=== PATIENT | female | born 1960 | race Caucasian/White ===

== ENCOUNTER 2017-04-26 16:45 | Emergency (ER) | payer MEDICARE, MEDICAID ==
--- NOTE | 2017-04-26 17:27 | EDM.PDOC ---
ED HPI GENERAL MEDICAL PROBLEM - General Chief Complaint: Neuro Symptoms/Deficits Stated Complaint: PT LEGS SWOLLEN Time Seen by Provider: 04/26/17 17:10 Source of Information: Reports: Patient History Limitations: Reports: No Limitations - History of Present Illness INITIAL COMMENTS - FREE TEXT/NARRATIVE: History of present illness: 56-year-old female brought in by care worker secondary to concerns by family practitioner over increasingly worse gait. Patient has had an altered gait since winter and it has gotten progressively worse. Review of systems: As per history of present illness and below otherwise all systems reviewed and negative. Past medical history: As per history of present illness and as reviewed below otherwise noncontributory. Surgical history: As per history of present illness and as reviewed below otherwise noncontributory. Social history: No reported history of drug or alcohol abuse. Family history: As per history of present illness and as reviewed below otherwise noncontributory. Physical exam: HEENT: Atraumatic, normocephalic, pupils reactive, negative for conjunctival pallor or scleral icterus, mucous membranes moist, throat clear, neck supple, nontender, trachea midline. Lungs: Clear to auscultation, breath sounds equal bilaterally, chest nontender. Heart: S1S2, regular, negative for clicks, rubs, or JVD. Abdomen: Soft, nondistended, nontender. Negative for masses or hepatosplenomegaly. Negative for costovertebral tenderness. Pelvis: Stable nontender. Genitourinary: Deferred. Rectal: Deferred. Extremities: Atraumatic, negative for cords or calf pain. Neurovascular unremarkable. Neuro: Patient with altered mental status as baseline and able to participate in a thorough neurological exam. Patient alternates between laughing hysterically and crying care worker indicates this is also patient's norm Diagnostics: [CT of the head] Therapeutics: [] Impression: [Altered gait/neuro changes] Plan: [Follow-up with PCP and neuro] Definitive disposition and diagnosis as appropriate pending reevaluation and review of above. - Related Data Allergies Allergy/AdvReac Type Severity Reaction Status Date / Time No Known Allergies Allergy Verified 04/26/17 17:09 Home Meds: Home Meds Divalproex Sodium [Depakote] 250 mg PO TID 09/06/15 [History] Levothyroxine [Synthroid] 1 tab PO ACBREAKFAST 09/06/15 [History] Polyethylene Glycol 3350 [MiraLAX] 1 dose PO ASDIRECTED PRN 09/06/15 [History] Polyvinyl Alcohol/Povidone [Refresh] 1 drop EYEBOTH ASDIRECTED PRN 09/06/15 [ History] Spironolactone 1 tab PO ACBREAKFAST 09/06/15 [History] fluvoxaMINE [Luvox] 1 tab PO ACBREAKFAST 09/06/15 [History] fluvoxaMINE [Luvox] 50 mg PO ASDIRECTED 09/06/15 [History] risperiDONE [Risperdal] 0.5 mg PO ACBREAKFAST 09/06/15 [History] risperiDONE [Risperdal] 1 tab PO ASDIRECTED 09/06/15 [History] Past Medical History Cardiovascular History: Reports: Hypertension Genitourinary History: Reports: None Neurological History: Reports: Other (See Below) Other Neuro History: scoliosis 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, Schizophrenia Endocrine/Metabolic History: Reports: Other (See Below) Other Endocrine/Metabolic History: melinda's hypothyroidism Dermatologic History: Reports: Other (See Below) Other Dermatologic History: hirsutism - Past Surgical History Cardiovascular Surgical History: Reports: None Female Surgical History: Reports: Other (See Below) Other Female Surgeries/Procedures: Right Oophorectomy Neurological Surgical History: Reports: None Social & Family History - Family History Family Medical History: Noncontributory - Tobacco Use Smoking Status *Q: Current Status Unknown - Recreational Drug Use Recreational Drug Use: No Drug Use in Last 12 Months: No ED ROS GENERAL - Review of Systems Review Of Systems: See Below (See history of present illness) ED EXAM, GENERAL - Physical Exam Exam: See Below (See history of present illness) Course - Vital Signs Last Recorded V/S: Last Vital Signs Temp 36.4 C 04/26/17 17:09 Pulse 93 04/26/17 17:09 Resp 16 04/26/17 17:09 BP 131/67 04/26/17 17:09 Pulse Ox 93 L 04/26/17 17:09 - Orders/Labs/Meds Orders: Active Orders 24 hr Category Date Time Status Head wo Cont [CT] Stat Exams 04/26/17 17:01 Taken Labs: Laboratory Tests 04/26/17 04/26/17 Range/Units 17:19 17:19 WBC 6.47 (4.0-11.0) K/uL RBC 5.06 (4.30-5.90) M/uL Hgb 14.5 (12.0-16.0) g/dL Hct 44.1 (36.0-46.0) % MCV 87.2 (80.0-98.0) fL MCH 28.7 (27.0-32.0) pg MCHC 32.9 (31.0-37.0) g/dL RDW Std Deviation 49.6 (28.0-62.0) fl RDW Coeff of Jimy 16 H (11.0-15.0) % Plt Count 161 (150-400) K/uL MPV 10.90 (7.40-12.00) fL Neut % (Auto) 60.8 (48.0-80.0) % Lymph % (Auto) 24.6 (16.0-40.0) % [place] % (Auto) 11.7 (0.0-15.0) % Eos % (Auto) 2.6 (0.0-7.0) % Baso % (Auto) 0.3 (0.0-1.5) % Neut # (Auto) 3.9 (1.4-5.7) K/uL Lymph # (Auto) 1.6 (0.6-2.4) K/uL [place] # (Auto) 0.8 (0.0-0.8) K/uL Eos # (Auto) 0.2 (0.0-0.7) K/uL Baso # (Auto) 0.0 (0.0-0.1) K/uL Nucleated RBC % 0.0 /100WBC Nucleated RBCs # 0 K/uL Sodium 141 (136-146) mmol/L Potassium 4.8 (3.5-5.1) mmol/L Chloride 106 (98-110) mmol/L Carbon Dioxide 27 (21-31) mmol/L BUN 22 (6.0-23.0) mg/dL Creatinine 0.9 (0.6-1.5) mg/dL Est Cr Clr Drug Dosing 49.54 mL/min Estimated GFR (MDRD) > 60.0 ml/min Glucose 95 (60-110) mg/dL Calcium 9.5 (8.8-10.8) mg/dL Total Bilirubin 0.2 (0.1-1.5) mg/dL AST 14 (5-40) IU/L ALT 10 (8-54) IU/L Alkaline Phosphatase 58 (40-150) Total Protein 7.0 (6.0-8.0) g/dL Albumin 3.8 (3.5-5.0) g/dL Globulin 3.2 (2.0-3.5) g/dL Albumin/Globulin Ratio 1.2 L (1.3-2.8) Departure - Departure Time of Disposition: 18:26 Disposition: Home, Self-Care 01 Condition: Good Clinical Impression: Altered gait - Discharge Information Forms: ED Department Discharge Additional Instructions: The following information is given to patients seen in the emergency department who are being discharged to home. This information is to outline your options for follow-up care. We provide all patients seen in our emergency department with a follow-up referral. The need for follow-up, as well as the timing and circumstances, are variable depending upon the specifics of your emergency department visit. If you don't have a primary care physician on staff, we will provide you with a referral. We always advise you to contact your personal physician following an emergency department visit to inform them of the circumstance of the visit and for follow-up with them and/or the need for any referrals to a consulting specialist. The emergency department will also refer you to a specialist when appropriate. This referral assures that you have the opportunity for follow-up care with a specialist. All of these measure are taken in an effort to provide you with optimal care, which includes your follow-up. Under all circumstances we always encourage you to contact your private physician who remains a resource for coordinating your care. When calling for follow-up care, please make the office aware that this follow-up is from your recent emergency room visit. If for any reason you are refused follow-up, please contact the [facility] Emergency Department at and asked to speak to the emergency department charge nurse. Follow-up with PCP 1-2 days for discussion of results and referral to Neuro accordingly Return to ED as needed as discussed - My Orders Last 24 Hours: My Active Orders 04/26/17 17:01 Head wo Cont [CT] Stat - Assessment/Plan Last 24 Hours: My Active Orders 04/26/17 17:01 Head wo Cont [CT] Stat
[2017-04-26 17:53] LABS: CHLORIDE,CL 106 mmol/L (98-110); SODIUM,NA 141 mmol/L (136-146)
[2017-04-26 18:40] VITALS: BP 109/60
--- NOTE | 2017-04-29 11:09 | CT ---
EXAM DATE: 04/26/17 PATIENT'S AGE: 56 Patient: LIZANDRO CAO Facility: [place], [place] Site . Site : 1960 Study: CT Head [id number] 5:59:25 PM Ordering Physician: Doctor Chapman Final Report: INDICATION: EVALUATE HYDROCEPHALUS CT HEAD WITHOUT CONTRAST TECHNIQUE: Multiple axial CT images were performed through the head without intravenous contrast administration. COMPARISON: No previous studies are currently available for comparison. FINDINGS: No acute intracranial hemorrhage is identified. No extra-axial collections are evident and there is no mass effect or midline shift. There is very mild diffuse age-related brain atrophy. Ventricular size and configuration are within normal limits for the patient`s age. Childers-white differentiation is within normal limits. There is minimal patchy hypodensity in the periventricular white matter, a nonspecific finding which most likely reflects chronic small vessel ischemic change. Osseous structures are within normal limits and no fractures are seen. Included portions of the paranasal sinuses and mastoid air cells are normally aerated. IMPRESSION: 1. No acute intracranial abnormality identified. No hydrocephalus. 2. Mild age-related brain atrophy and white matter hypodensity consistent with chronic small vessel ischemic change. BRIAN MCKENZIE MD [employer] Dictated by: Ollie Mckenzie MD @ 04/26/2017 18:21:38 (Electronic Signature) Report Signed by Proxy. [facility]
== END 2017-04-26 18:40 | disposition home or self-care (01) ==
LOC: MW.ED 16:45
DX: R26.9 Unspecified abnormalities of gait and mobility (principal); I10 Essential (primary) hypertension; Z79.899 Other long term (current) drug therapy
CPT/HCPCS: 36415; 70450; 70450-26; 80053; 85025; 99283; 99284-25

== ENCOUNTER 2018-01-27 14:19 | Emergency (ER) | payer MEDICARE, MEDICAID ==
[2018-01-27 14:47] VITALS: BP 130/97
[2018-01-27] MEDS ORDERED: Lidocaine 1% 20 ML MDV INJECT ONE (15:12)
[2018-01-27] MEDS ORDERED: Diphtheria,Pertussis(Acell),Tetanus Vaccine 0.5 ML Syringe IM ONE (15:12)
--- NOTE | 2018-01-27 15:12 | EDM.PDOC ---
ED HPI GENERAL MEDICAL PROBLEM - General Chief Complaint: Head Injury Stated Complaint: FALL(HEAD INJURY) Time Seen by Provider: 01/27/18 14:35 - History of Present Illness INITIAL COMMENTS - FREE TEXT/NARRATIVE: HISTORY AND PHYSICAL: History of present illness: Patient is 57-year-old white female presents status post fall she sustained a laceration or frontal scalp and her left face there is no loss consciousness no nausea no vomiting no other complaints this was reported be a strictly mechanical fall. Tetanus status is to be determined Review of systems: As per history of present illness and below otherwise all systems reviewed and negative. Past medical history: As per history of present illness and as reviewed below otherwise noncontributory. Surgical history: As per history of present illness and as reviewed below otherwise noncontributory. Social history: No reported history of drug or alcohol abuse. Family history: As per history of present illness and as reviewed below otherwise noncontributory. Physical exam: HEENT: Patient has a moderate depth approximately 4 cm laceration to right frontal scalp she has approximately 1/2 cm moderate depth laceration above her left eye is no step-off no depression is good hemostasis neurovascular exam is unremarkable, normocephalic, pupils reactive, negative for conjunctival pallor or scleral icterus, mucous membranes moist, throat clear, neck supple, nontender , trachea midline. Lungs: Clear to auscultation, breath sounds equal bilaterally, chest nontender. Heart: S1S2, regular, negative for clicks, rubs, or JVD. Abdomen: Soft, nondistended, nontender. Negative for masses or hepatosplenomegaly. Negative for costovertebral tenderness. Pelvis: Stable nontender. Genitourinary: Deferred. Rectal: Deferred. Extremities: Atraumatic, negative for cords or calf pain. Neurovascular unremarkable. 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 - Related Data Allergies Allergy/AdvReac Type Severity Reaction Status Date / Time No Known Allergies Allergy Verified 04/26/17 17:09 Home Meds: Home Meds Divalproex Sodium [Depakote] 250 mg PO TID 09/06/15 [History] Polyethylene Glycol 3350 [MiraLAX] 1 dose PO ASDIRECTED PRN 09/06/15 [History] Polyvinyl Alcohol/Povidone [Refresh] 1 drop EYEBOTH ASDIRECTED PRN 09/06/15 [ History] Spironolactone 1 tab PO ACBREAKFAST 09/06/15 [History] fluvoxaMINE [Luvox] 1 tab PO ACBREAKFAST 09/06/15 [History] fluvoxaMINE [Luvox] 100 mg PO ASDIRECTED 09/06/15 [History] risperiDONE [Risperdal] 1 tab PO TID 09/06/15 [History] Levothyroxine [Synthroid] 88 mcg PO DAILY 01/27/18 [History] Past Medical History Cardiovascular History: Reports: Hypertension Genitourinary History: Reports: None Neurological History: Reports: Other (See Below) Other Neuro History: scoliosis 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, Schizophrenia Endocrine/Metabolic History: Reports: Other (See Below) Other Endocrine/Metabolic History: melinda's hypothyroidism Dermatologic History: Reports: Other (See Below) Other Dermatologic History: hirsutism - Past Surgical History Cardiovascular Surgical History: Reports: None Female Surgical History: Reports: Other (See Below) Other Female Surgeries/Procedures: Right Oophorectomy '2010 Neurological Surgical History: Reports: None Social & Family History - Family History Family Medical History: Noncontributory - Tobacco Use Smoking Status *Q: Current Status Unknown - Recreational Drug Use Recreational Drug Use: No Drug Use in Last 12 Months: No ED ROS GENERAL - Review of Systems Review Of Systems: ROS reveals no pertinent complaints other than HPI. ED EXAM, HEAD INJURY - Physical Exam Exam: See Below (The dictation) Course - Vital Signs Last Recorded V/S: Last Vital Signs Temp 36.7 C 01/27/18 14:39 Pulse 79 01/27/18 14:39 Resp 18 01/27/18 14:39 BP 130/97 H 01/27/18 14:39 Pulse Ox 96 01/27/18 14:39 Departure - Departure Time of Disposition: 15:11 Disposition: Home, Self-Care 01 Condition: Good Clinical Impression: Head injury, Scalp laceration, Facial laceration - Discharge Information Referrals: Tresa Barnes DO [Primary Care Provider] - Additional Instructions: The following information is given to patients seen in the emergency department who are being discharged to home. This information is to outline your options for follow-up care. We provide all patients seen in our emergency department with a follow-up referral. The need for follow-up, as well as the timing and circumstances, are variable depending upon the specifics of your emergency department visit. If you don't have a primary care physician on staff, we will provide you with a referral. We always advise you to contact your personal physician following an emergency department visit to inform them of the circumstance of the visit and for follow-up with them and/or the need for any referrals to a consulting specialist. The emergency department will also refer you to a specialist when appropriate. This referral assures that you have the opportunity for followup care with a specialist. All of these measure are taken in an effort to provide you with optimal care, which includes your followup. Under all circumstances we always encourage you to contact your private physician who remains a resource for coordinating your care. When calling for followup care, please make the office aware that this follow-up is from your recent emergency room visit. If for any reason you are refused follow-up, please contact the [facility] emergency department at and asked to speak to the emergency department charge nurse. Follow-up primary medical doctor call to schedule appointment staple removal 10- 14 days return as needed as discussed[]
[2018-01-27] MEDS ORDERED: Lidocaine 1% 20 ML MDV ONE (15:13)
[2018-01-27] MEDS ORDERED: Bacitracin Oint 1 GM U/D Packet ONE (15:37)
[2018-01-27] MEDS ORDERED: Bacitracin Oint 1 GM U/D Packet TOP ONE (15:37)
== END 2018-01-27 15:59 | disposition home or self-care (01) ==
LOC: MW.ED 14:19
DX: S01.01XA Laceration without foreign body of scalp, initial encounter (principal); S01.81XA Laceration without foreign body of other part of head, initial encounter; S09.90XA Unspecified injury of head, initial encounter; E03.8 Other specified hypothyroidism; I10 Essential (primary) hypertension; Z79.899 Other long term (current) drug therapy; Z23 Encounter for immunization; W19.XXXA Unspecified fall, initial encounter
CPT/HCPCS: 90471; 90715; 99282-25

== ENCOUNTER 2019-04-26 07:44 | Emergency (ER) | payer MEDICARE, MEDICAID ==
--- NOTE | 2019-04-26 07:59 | EDM.PDOC ---
ED HPI GENERAL MEDICAL PROBLEM - General Chief Complaint: Head Injury Stated Complaint: HEAD INJURY Time Seen by Provider: 04/26/19 07:56 Source of Information: Reports: Family History Limitations: Reports: No Limitations, Other (Schizophrenia) - History of Present Illness INITIAL COMMENTS - FREE TEXT/NARRATIVE: History of present illness: []Patient lives in a intermediate has a history of schizophrenia. Her caregiver got her out of bed this morning and found a contusion on her right frontal scalp. She has not been acting any differently tolerated her meds has not had any vomiting or any other changes in her behavior. Review of systems: As per history of present illness and below otherwise all systems reviewed and negative. Past medical history: As per history of present illness and as reviewed below otherwise noncontributory. Surgical history: As per history of present illness and as reviewed below otherwise noncontributory. Social history: No reported history of drug or alcohol abuse. Family history: As per history of present illness and as reviewed below otherwise noncontributory. Physical exam: General: Well developed, well nourished in NAD HEENT: 2 cm x 2 cm hematoma on the scalp right frontotemporal, normocephalic, pupils reactive, negative for conjunctival pallor or scleral icterus, mucous membranes moist, throat clear, neck supple, nontender, no step-offs, trachea midline. TMs show no hemotympanum, no epistaxis. Lungs: Clear to auscultation, breath sounds equal bilaterally, chest nontender. Heart: S1S2, regular, negative for clicks, rubs, or JVD. Abdomen: NABS, Soft, nondistended, nontender. Negative for masses or hepatosplenomegaly. Negative for costovertebral tenderness. Pelvis: Stable nontender. Genitourinary: Deferred. Rectal: Deferred. Extremities: Atraumatic, negative for cords or calf pain. Neurovascular unremarkable. Neuro: Awake, Cranial nerves II through XII unremarkable. Cerebellum unremarkable. Motor and sensory unremarkable throughout. Exam nonfocal. Skin:warm and dry Diagnostics: None Therapeutics: None ED Course: Stable Impression: Medical screening exam Prescriptions: None Plan: Take your regular meds as directed, follow up with your primary care physician, return to ER if symptoms worsen or change. Definitive disposition and diagnosis as appropriate pending reevaluation and review of above. - Related Data Allergies Allergy/AdvReac Type Severity Reaction Status Date / Time No Known Allergies Allergy Verified 04/26/19 07:59 Home Meds: Home Meds Divalproex Sodium [Depakote] 250 mg PO TID 09/06/15 [History] Polyethylene Glycol 3350 [MiraLAX] 1 dose PO ASDIRECTED PRN 09/06/15 [History] Polyvinyl Alcohol/Povidone [Refresh] 1 drop EYEBOTH ASDIRECTED PRN 09/06/15 [ History] Spironolactone 1 tab PO ACBREAKFAST 09/06/15 [History] fluvoxaMINE [Luvox] 1 tab PO ACBREAKFAST 09/06/15 [History] fluvoxaMINE [Luvox] 100 mg PO ASDIRECTED 09/06/15 [History] risperiDONE [Risperdal] 1 tab PO TID 09/06/15 [History] Levothyroxine [Synthroid] 88 mcg PO DAILY 01/27/18 [History] Past Medical History HEENT History: Reports: None Cardiovascular History: Reports: Hypertension Respiratory History: Reports: None Gastrointestinal History: Reports: None Genitourinary History: Reports: None 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 WORKER History: Reports: None Musculoskeletal History: Reports: None Neurological History: Reports: Other (See Below) Other Neuro History: scoliosis 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, Schizophrenia Endocrine/Metabolic History: Reports: Other (See Below) Other Endocrine/Metabolic History: melinda's hypothyroidism Hematologic History: Reports: None Immunologic History: Reports: None Oncologic (Cancer) History: Reports: None Dermatologic History: Reports: Other (See Below) Other Dermatologic History: hirsutism - Past Surgical History Cardiovascular Surgical History: Reports: None Female Surgical History: Reports: Other (See Below) Other Female Surgeries/Procedures: Right Oophorectomy '2010 Neurological Surgical History: Reports: None Social & Family History - Family History Family Medical History: Noncontributory - Caffeine Use Caffeine Use: Reports: None ED ROS GENERAL - Review of Systems Review Of Systems: See Below ED EXAM, HEAD INJURY - Physical Exam Exam: See Below Course - Vital Signs Last Recorded V/S: Last Vital Signs Temp 98.3 F 04/26/19 07:59 Pulse 127 H 04/26/19 07:59 Resp 18 04/26/19 07:59 BP 123/89 04/26/19 07:59 Pulse Ox 97 04/26/19 07:59 Departure - Departure Time of Disposition: 08:07 Disposition: Home, Self-Care 01 Condition: Good Clinical Impression: Encounter for medical screening examination Scalp hematoma Qualifiers: Encounter type: initial encounter Qualified Code(s): S00.03XA - Contusion of scalp, initial encounter - Discharge Information *PRESCRIPTION DRUG MONITORING PROGRAM REVIEWED*: Not Applicable *COPY OF PRESCRIPTION DRUG MONITORING REPORT IN PATIENT FABRICE: Not Applicable Referrals: PCP,Unknown [Primary Care Provider] - Forms: ED Department Discharge Additional Instructions: The following information is given to patients seen in the emergency department who are being discharged to home. This information is to outline your options for follow-up care. We provide all patients seen in our emergency department with a follow-up referral. The need for follow-up, as well as the timing and circumstances, are variable depending upon the specifics of your emergency department visit. If you don't have a primary care physician on staff, we will provide you with a referral. We always advise you to contact your personal physician following an emergency department visit to inform them of the circumstance of the visit and for follow-up with them and/or the need for any referrals to a consulting specialist. The emergency department will also refer you to a specialist when appropriate. This referral assures that you have the opportunity for follow-up care with a specialist. All of these measure are taken in an effort to provide you with optimal care, which includes your follow-up. Under all circumstances we always encourage you to contact your private physician who remains a resource for coordinating your care. When calling for follow-up care, please make the office aware that this follow-up is from your recent emergency room visit. If for any reason you are refused follow-up, please contact the [facility] Emergency Department at and asked to speak to the emergency department charge nurse. [facility] [address] [place] [id number]
[2019-04-26 08:02] VITALS: BP 123/89
== END 2019-04-26 08:21 | disposition home or self-care (01) ==
LOC: MW.ED 07:44
DX: S00.03XA Contusion of scalp, initial encounter (principal); I10 Essential (primary) hypertension; Z79.899 Other long term (current) drug therapy; W06.XXXA Fall from bed, initial encounter
CPT/HCPCS: 99282; 99283

== ENCOUNTER 2019-11-06 09:28 | Observation (INO) | payer MEDICARE, MEDICAID ==
--- NOTE | 2019-11-06 10:18 | CT ---
Head CT Technique: Multiple axial sections through the brain were obtained. Intravenous contrast was not utilized. Comparison: Prior head CT exam of 04/26/17. Findings: Ventricles along with basal cisterns and sulci over the convexities appear within normal limits for the patient's age. No abnormal parenchymal densities are seen. No evidence of intracranial hemorrhage. No midline shift or mass effect is appreciated. Bone window settings were reviewed. No acute calvarial finding is appreciated. Mastoid sinuses and visualized paranasal sinuses show nothing acute. Impression: 1. Nothing acute is appreciated on noncontrast head CT exam. Diagnostic code #1 This report was dictated in [place] Standard Time
[2019-11-06] MEDS ORDERED: Dextrose 5%-0.9% NaCl 1,000 ML IV SCH (10:45)
[2019-11-06 12:00] LABS: CARBON DIOXIDE,CO2 35.9 mmol/L (21.0-32.0); POTASSIUM,K 3.5 mmol/L (3.5-5.1)
--- NOTE | 2019-11-06 14:00 | CT ---
CT abdomen and pelvis Technique: Multiple axial sections were obtained from above the dome of the diaphragm inferiorly through the pubic symphysis. Intravenous and oral contrast not utilized. Comparison: No prior abdominal imaging is available. Findings: Visualized lung bases shows increased density within the right base most likely representing chronic change with scarring. Noncontrast appearance of the liver shows no discrete abnormality. Spleen appears within normal limits. Moderately large hiatal hernia is seen. Small layering gallstones are seen within the gallbladder. Gallbladder is slightly dilated. Adrenal glands show no nodule. Kidneys show symmetric contrast enhancement without hydronephrosis or mass. Pancreas appears within normal limits. Aorta shows no aneurysm. No retroperitoneal adenopathy or mesenteric abnormalities are seen. Appendix felt to be visualized and is normal in size. No pelvic mass or adenopathy is noted. Increased stool is noted within the rectosigmoid regions as well as within other portions of the colon. Air is noted within the bladder. Diverticuli are seen within the sigmoid colon and descending colon without inflammatory change of diverticulitis. Bone window settings were reviewed which shows scoliosis within the spine without acute osseous finding being seen. Impression: 1. Air within the bladder. Please correlate if patient has had recent instrumentation as an etiology. 2. Parenchymal density within the right lung base most likely representing an area of scarring. 3. Multiple small layering gallstones within the gallbladder. Gallbladder slightly dilated, uncertain if this is due to fasting. 4. Mild increased stool within the colon. 5. Other findings believed to be incidental as described above. Diagnostic code #3 Study was dictated in [place] Standard Time
[2019-11-06] MEDS ORDERED: Sodium Chloride 0.9% 1,000 ML IV ONE (14:31)
--- NOTE | 2019-11-06 15:23 | PCM.HP.2 ---
H&P History of Present Illness - General Date of Service: 11/06/19 Admit Problem/Dx: Admission Diagnosis/Problem Admission Diagnosis/Problem Acute kidney injury - History of Present Illness Initial Comments - Free Text/Narative: The patient is a 58 year old female who is a [facility], [place] client with PMH of schizophrenia, LE edema, and hypothyroidism who presents with caregiver with several concerns. Caregiver reports she has been shaking , decreased appetite (only ate applesauce and hot chocolate yesterday), and holding her arms up by her chest. They report that she finished course of azithromycin on for UTI and then started on Bactrim yesterday for UTI. Patient does not participate in any meaningful way in the interview or exam. Caregiver denies fever/chills, nausea/vomiting, constipation/diarrhea, black/bloody stools. She does have a bruise on her left forehead which they noticed on 11/02/19 but no one saw the head injury. In the ER, lab work showed no leukocytosis, anemia with hemoglobin of 10, elevated BUN/Cr of 34/1.5, low TSH, UA positive for ketones, and she had a glucose of 67. They gave her an amp of D50 and her glucose improved to 284. Head CT showed no acute issues. CT ab/pelvis showed air in the bladder (she was cathed for urine sample), gallstones with GB dilation that could be due to fasting, and increased stool. - Related Data Allergies/Adverse Reactions: Allergies Allergy/AdvReac Type Severity Reaction Status Date / Time No Known Allergies Allergy Verified 11/06/19 09:43 Home Medications: Home Meds Divalproex Sodium [Depakote] 250 mg PO TID 09/06/15 [History] Polyethylene Glycol 3350 [MiraLAX] 1 dose PO ASDIRECTED PRN 09/06/15 [History] Polyvinyl Alcohol/Povidone [Refresh] 1 drop EYEBOTH ASDIRECTED PRN 09/06/15 [ History] fluvoxaMINE [Luvox] 100 mg PO ASDIRECTED 09/06/15 [History] Levothyroxine [Synthroid] 88 mcg PO DAILY 01/27/18 [History] Past Medical History HEENT History: Reports: None Cardiovascular History: Reports: Hypertension Respiratory History: Reports: None Gastrointestinal History: Reports: None Genitourinary History: Reports: None ICU STAFF NURSE History: Reports: None Musculoskeletal History: Reports: None Neurological History: Reports: Other (See Below) Other Neuro History: scoliosis 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, Schizophrenia Endocrine/Metabolic History: Reports: Other (See Below) Other Endocrine/Metabolic History: melinda's hypothyroidism Hematologic History: Reports: None Immunologic History: Reports: None Oncologic (Cancer) History: Reports: None Dermatologic History: Reports: Other (See Below) Other Dermatologic History: hirsutism - Infectious Disease History Infectious Disease History: Reports: None - Past Surgical History Head Surgeries/Procedures: Reports: None Cardiovascular Surgical History: Reports: None Female Surgical History: Reports: Other (See Below) Other Female Surgeries/Procedures: Right Oophorectomy Neurological Surgical History: Reports: None Social & Family History - Family History Family Medical History: Noncontributory - Tobacco Use Smoking Status *Q: Unknown Ever Smoked Second Hand Smoke Exposure: No - Caffeine Use Caffeine Use: Reports: None H&P Review of Systems - Review of Systems: Review Of Systems: See Below Reason Not Obtained: Obtained from caregiver General: Reports: Weakness, Decreased Appetite. Denies: Fever, Chills HEENT: Reports: No Symptoms Pulmonary: Reports: No Symptoms Cardiovascular: Reports: Edema. Denies: Chest Pain Gastrointestinal: Reports: No Symptoms Genitourinary: Reports: Dysuria Musculoskeletal: Reports: No Symptoms Skin: Reports: No Symptoms Psychiatric: Reports: No Symptoms Neurological: Reports: No Symptoms Hematologic/Lymphatic: Reports: Anemia Immunologic: Reports: No Symptoms Exam - Exam Exam: See Below Reason Not Obtained: limited exam, patient would not participate in exam - Vital Signs Vital Signs: Last Vital Signs Temp 97.1 F 11/06/19 09:44 Pulse 90 11/06/19 14:40 Resp 13 11/06/19 14:40 BP 128/74 11/06/19 14:40 Pulse Ox 98 11/06/19 14:40 Weight: 47 kg - Exam General: Alert Lungs: Clear to Auscultation, Normal Respiratory Effort Cardiovascular: Regular Rate, Regular Rhythm GI/Abdominal Exam: Normal Bowel Sounds, Soft, Non-Tender, No Distention Extremities: Pedal Edema Skin: Warm, Dry, Intact Neuro Extensive - Mental Status: Alert - Patient Data Lab Results Last 24 hrs: Laboratory Results - last 24 hr 11/06/19 11/06/19 11/06/19 Range/Units 09:59 10:05 11:20 WBC 4.67 (4.0-11.0) K/uL RBC 3.36 L (4.30-5.90) M/uL Hgb 10.0 L (12.0-16.0) g/dL Hct 29.9 L (36.0-46.0) % MCV 89.0 (80.0-98.0) fL MCH 29.8 (27.0-32.0) pg MCHC 33.4 (31.0-37.0) g/dL RDW Std Deviation 49.2 (28.0-62.0) fl RDW Coeff of Jimy 15 (11.0-15.0) % Plt Count 99 L (150-400) K/uL MPV 10.80 (7.40-12.00) fL Neut % (Auto) 76.5 (48.0-80.0) % Lymph % (Auto) 10.5 L (16.0-40.0) % [place] % (Auto) 12.6 (0.0-15.0) % Eos % (Auto) 0.4 (0.0-7.0) % Baso % (Auto) 0.0 (0.0-1.5) % Neut # (Auto) 3.6 (1.4-5.7) K/uL Lymph # (Auto) 0.5 L (0.6-2.4) K/uL [place] # (Auto) 0.6 (0.0-0.8) K/uL Eos # (Auto) 0.0 (0.0-0.7) K/uL Baso # (Auto) 0.0 (0.0-0.1) K/uL Nucleated RBC % 0.0 /100WBC Nucleated RBCs # 0 K/uL INR Sodium (136-145) mmol/L Potassium (3.5-5.1) mmol/L Chloride (98-107) mmol/L Carbon Dioxide (21.0-32.0) mmol/L BUN (7.0-18.0) mg/dL Creatinine (0.6-1.0) mg/dL Est Cr Clr Drug Dosing mL/min Estimated GFR (MDRD) ml/min Glucose (74-106) mg/dL POC Glucose 67 (60-110) mg/dL Calcium (8.5-10.1) mg/dL Total Bilirubin (0.2-1.0) mg/dL AST (15-37) IU/L ALT (14-63) IU/L Alkaline Phosphatase (46-116) U/L Creatine Kinase (26-308) U/L Total Protein (6.4-8.2) g/dL Albumin (3.4-5.0) g/dL Globulin (2.6-4.0) g/dL Albumin/Globulin Ratio (0.9-1.6) TSH 3rd Generation (0.36-3.74) uIU/mL Urine Color YELLOW Urine Appearance CLEAR Urine pH 5.5 (5.0-8.0) Ur Specific [place] 1.020 (1.001-1.035) Urine Protein NEGATIVE (NEGATIVE) mg/dL Urine Glucose (UA) NEGATIVE (NEGATIVE) mg/dL Urine Ketones TRACE H (NEGATIVE) mg/dL Urine Occult Blood NEGATIVE (NEGATIVE) Urine Nitrite NEGATIVE (NEGATIVE) Urine Bilirubin NEGATIVE (NEGATIVE) Urine Urobilinogen 0.2 (<2.0) EU/dL Ur Leukocyte Esterase NEGATIVE (NEGATIVE) 11/06/19 11/06/19 11/06/19 Range/Units 11:20 11:20 11:20 WBC (4.0-11.0) K/uL RBC (4.30-5.90) M/uL Hgb (12.0-16.0) g/dL Hct (36.0-46.0) % MCV (80.0-98.0) fL MCH (27.0-32.0) pg MCHC (31.0-37.0) g/dL RDW Std Deviation (28.0-62.0) fl RDW Coeff of Jimy (11.0-15.0) % Plt Count (150-400) K/uL MPV (7.40-12.00) fL Neut % (Auto) (48.0-80.0) % Lymph % (Auto) (16.0-40.0) % [place] % (Auto) (0.0-15.0) % Eos % (Auto) (0.0-7.0) % Baso % (Auto) (0.0-1.5) % Neut # (Auto) (1.4-5.7) K/uL Lymph # (Auto) (0.6-2.4) K/uL [place] # (Auto) (0.0-0.8) K/uL Eos # (Auto) (0.0-0.7) K/uL Baso # (Auto) (0.0-0.1) K/uL Nucleated RBC % /100WBC Nucleated RBCs # K/uL INR 1.12 Sodium 144 (136-145) mmol/L Potassium 3.5 (3.5-5.1) mmol/L Chloride 104 (98-107) mmol/L Carbon Dioxide 35.9 H (21.0-32.0) mmol/L BUN 34 H (7.0-18.0) mg/dL Creatinine 1.5 H (0.6-1.0) mg/dL Est Cr Clr Drug Dosing 29.96 mL/min Estimated GFR (MDRD) 35.5 ml/min Glucose 267 H (74-106) mg/dL POC Glucose (60-110) mg/dL Calcium 8.9 (8.5-10.1) mg/dL Total Bilirubin 0.2 (0.2-1.0) mg/dL AST 24 (15-37) IU/L ALT 26 (14-63) IU/L Alkaline Phosphatase 61 (46-116) U/L Creatine Kinase 151 (26-308) U/L Total Protein 5.3 L (6.4-8.2) g/dL Albumin 2.3 L (3.4-5.0) g/dL Globulin 3.0 (2.6-4.0) g/dL Albumin/Globulin Ratio 0.8 L (0.9-1.6) TSH 3rd Generation 0.04 L (0.36-3.74) uIU/mL Urine Color Urine Appearance Urine pH (5.0-8.0) Ur Specific [place] (1.001-1.035) Urine Protein (NEGATIVE) mg/dL Urine Glucose (UA) (NEGATIVE) mg/dL Urine Ketones (NEGATIVE) mg/dL Urine Occult Blood (NEGATIVE) Urine Nitrite (NEGATIVE) Urine Bilirubin (NEGATIVE) Urine Urobilinogen (<2.0) EU/dL Ur Leukocyte Esterase (NEGATIVE) 11/06/19 Range/Units 11:47 WBC (4.0-11.0) K/uL RBC (4.30-5.90) M/uL Hgb (12.0-16.0) g/dL Hct (36.0-46.0) % MCV (80.0-98.0) fL MCH (27.0-32.0) pg MCHC (31.0-37.0) g/dL RDW Std Deviation (28.0-62.0) fl RDW Coeff of Jimy (11.0-15.0) % Plt Count (150-400) K/uL MPV (7.40-12.00) fL Neut % (Auto) (48.0-80.0) % Lymph % (Auto) (16.0-40.0) % [place] % (Auto) (0.0-15.0) % Eos % (Auto) (0.0-7.0) % Baso % (Auto) (0.0-1.5) % Neut # (Auto) (1.4-5.7) K/uL Lymph # (Auto) (0.6-2.4) K/uL [place] # (Auto) (0.0-0.8) K/uL Eos # (Auto) (0.0-0.7) K/uL Baso # (Auto) (0.0-0.1) K/uL Nucleated RBC % /100WBC Nucleated RBCs # K/uL INR Sodium (136-145) mmol/L Potassium (3.5-5.1) mmol/L Chloride (98-107) mmol/L Carbon Dioxide (21.0-32.0) mmol/L BUN (7.0-18.0) mg/dL Creatinine (0.6-1.0) mg/dL Est Cr Clr Drug Dosing mL/min Estimated GFR (MDRD) ml/min Glucose (74-106) mg/dL POC Glucose 284 H (60-110) mg/dL Calcium (8.5-10.1) mg/dL Total Bilirubin (0.2-1.0) mg/dL AST (15-37) IU/L ALT (14-63) IU/L Alkaline Phosphatase (46-116) U/L Creatine Kinase (26-308) U/L Total Protein (6.4-8.2) g/dL Albumin (3.4-5.0) g/dL Globulin (2.6-4.0) g/dL Albumin/Globulin Ratio (0.9-1.6) TSH 3rd Generation (0.36-3.74) uIU/mL Urine Color Urine Appearance Urine pH (5.0-8.0) Ur Specific [place] (1.001-1.035) Urine Protein (NEGATIVE) mg/dL Urine Glucose (UA) (NEGATIVE) mg/dL Urine Ketones (NEGATIVE) mg/dL Urine Occult Blood (NEGATIVE) Urine Nitrite (NEGATIVE) Urine Bilirubin (NEGATIVE) Urine Urobilinogen (<2.0) EU/dL Ur Leukocyte Esterase (NEGATIVE) Result Diagrams: 11/06/19 11:20 11/06/19 11:20 Sepsis Event Note - Evaluation Sepsis Screening Result: No Definite Risk - Focused Exam Vital Signs: Vital Signs Temp Pulse Resp BP Pulse Ox 11/06/19 14:40 90 13 128/74 98 11/06/19 13:30 94 12 118/72 98 11/06/19 12:50 76 13 120/72 98 11/06/19 11:50 98 13 87/52 L 92 L 11/06/19 10:44 96 14 93/56 L 93 L 11/06/19 09:56 98 13 109/53 L 95 11/06/19 09:44 97.1 F 104 H 18 110/70 93 L Date Exam was Performed: 11/06/19 Time Exam was Performed: 15:16 Problem List Initiated/Reviewed/Updated: Yes Orders Last 24hrs: Active Orders 24 hr Category Date Time Status Admission Status [Patient Status] [ADT] Stat ADT 11/06/19 15:04 Active Dextrose 5%-0.9% NaCl [Dextrose 5%-Normal Saline] 1,000 Med 11/06/19 10:45 Active ml IV ASDIRECTED Sodium Chloride 0.9% [Normal Saline] 1,000 ml Med 11/06/19 14:31 Active IV .BOLUS Medication Orders Dextrose/Sodium Chloride (Dextrose 5%-Normal Saline) 1,000 mls @ 1,000 mls/hr IV ASDIRECTED DEQUAN Last Admin: 11/06/19 10:44 Dose: 1,000 mls/hr Sodium Chloride (Normal Saline) 1,000 mls @ 999 mls/hr IV .BOLUS ONE Stop: 11/06/19 15:31 Last Admin: 11/06/19 14:37 Dose: 999 mls/hr Assessment/Plan Comment:: 1. Admit for observation 2. Code status- Full 3. Vitals per routine 4. I/Os routine 5. Diet- regular 6. DVT prophylaxis with SCDs 7. RENEA- will stop Bactrim, and treat with ceftriaxone and start IVF 8. Hypoglycemia- will monitor for signs of hypoglycemia nad check sugar every 6 hours 9. Normocytic anemia- denies black/bloody stools- monitor hemoglobin 10. Chronic conditions- Hypothyroidism, schizophrenia, depression, LE edema- continue home meds
[2019-11-06] MEDS ORDERED: Sodium Chloride 0.9% 1,000 ML IV SCH (15:30)
[2019-11-06] MEDS ORDERED: Non-Formulary Medication 1 Each (Polyvinyl Alcohol/Povidone [Refresh] 1 DROP) EYEBOTH PRN (15:32)
[2019-11-06] MEDS ORDERED: Polyethylene Glycol 3350 Powder 17 GM Packet PO PRN (15:32)
[2019-11-06] MEDS ORDERED: FLUVOXAMINE 100 MG PO SCH (15:45)
[2019-11-06] MEDS: cefTRIAXone 1 GM in Sodium Chloride 0.9% 50 ML IV SCH (15:56)
[2019-11-06] MEDS ORDERED: Carboxymethylcellulose Sodium 0.5% Ophth Soln 0.4 ML UD Box of 30 EYEBOTH PRN (16:15)
--- NOTE | 2019-11-06 16:43 | EDM.PDOC ---
ED HPI GENERAL MEDICAL PROBLEM - General Chief Complaint: Neuro Symptoms/Deficits Stated Complaint: MEDICAL REFERRAL TO ER . 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 Patient is also been more off balance with her gait and requiring assistance for ambulation. Patient has had 2 falls in the last week related to gait abnormalities. Patient hit her head once and suffered a bruise. Patient is also had some change in her behavior and is less verbal than her baseline. No fevers, chills, vomiting, diarrhea. Review of systems unable to be obtained secondary to mental status. I have reviewed the triage vital signs Const: Well nourished, well developed, appears stated age Eyes: PERRL, no conjunctival injection HENT: NCAT, Neck supple without meningismus CV: RRR, Warm, well-perfused extremities RESP: CTAB, Unlabored respiratory effort GI: soft, non-tender, non-distended, no masses MSK: Contracted bilateral upper extremities no gross deformities appreciated Skin: Warm, dry. 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 Sensation and motor function of extremities grossly intact. Psych: not agitated Assessment and plan: Patient is a 55-year-old female presenting with decreased appetite. Patient had labs done which demonstrated acute kidney injury. Patient's glucose was also initially low likely not eating. Patient given IV fluids for rehydration. Patient had further imaging done especially after the fall but did not demonstrate any acute abnormalities. Patient is still not eating or take anything by mouth and therefore will be placed in observation under the hospitalist service. Of note, there was a stroke code that was called in this patient despite not meeting criteria. Per nursing, they were concerned about the patient's bilateral contracted upper extremities and history of head trauma. Patient not eligible for any anticoagulation and does not demonstrate any acute neurologic deficits consistent with stroke syndrome. All questions addressed and answered. Caregiver agree with plan. - Related Data Allergies Allergy/AdvReac Type Severity Reaction Status Date / Time No Known Allergies Allergy Verified 11/06/19 09:43 Home Meds: Home Meds Divalproex Sodium [Depakote] 250 mg PO TID 09/06/15 [History] Polyethylene Glycol 3350 [MiraLAX] 1 dose PO ASDIRECTED PRN 09/06/15 [History] Polyvinyl Alcohol/Povidone [Refresh] 1 drop EYEBOTH ASDIRECTED PRN 09/06/15 [ History] fluvoxaMINE [Luvox] 100 mg PO ASDIRECTED 09/06/15 [History] Levothyroxine [Synthroid] 88 mcg PO DAILY 01/27/18 [History] Past Medical History HEENT History: Reports: None Cardiovascular History: Reports: Hypertension Respiratory History: Reports: None Gastrointestinal History: Reports: None Genitourinary History: Reports: None CAD DETAILER History: Reports: None Musculoskeletal History: Reports: None Neurological History: Reports: Other (See Below) Other Neuro History: scoliosis 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, Schizophrenia Endocrine/Metabolic History: Reports: Other (See Below) Other Endocrine/Metabolic History: melinda's hypothyroidism Hematologic History: Reports: None Immunologic History: Reports: None Oncologic (Cancer) History: Reports: None Dermatologic History: Reports: Other (See Below) Other Dermatologic History: hirsutism - Infectious Disease History Infectious Disease History: Reports: None - Past Surgical History Head Surgeries/Procedures: Reports: None Cardiovascular Surgical History: Reports: None Female Surgical History: Reports: Other (See Below) Other Female Surgeries/Procedures: Right Oophorectomy Neurological Surgical History: Reports: None Social & Family History - Family History Family Medical History: Noncontributory - Tobacco Use Smoking Status *Q: Unknown Ever Smoked Second Hand Smoke Exposure: No - Caffeine Use Caffeine Use: Reports: None ED ROS GENERAL - Review of Systems Review Of Systems: See Below ED EXAM, NEURO - Physical Exam Exam: See Below Course - Vital Signs Last Recorded V/S: Last Vital Signs Temp 36.2 C 11/06/19 09:44 Pulse 94 11/06/19 15:47 Resp 12 11/06/19 15:47 BP 106/55 L 11/06/19 15:47 Pulse Ox 99 11/06/19 15:47 - Orders/Labs/Meds Orders: Active Orders 24 hr Category Date Time Status Admission Status [Patient Status] [ADT] Stat ADT 11/06/19 15:04 Active Dextrose 5%-0.9% NaCl [Dextrose 5%-Normal Saline] 1,000 Med 11/06/19 10:45 Active ml IV ASDIRECTED Medication Orders Artificial Tears (Refresh Plus 0.5%) 1 each EYEBOTH Q48H PRN PRN Reason: Dry Eyes Divalproex Sodium (Divalproex Sodium) 250 mg PO TID DEQUAN Fluvoxamine Maleate (Fluvoxamine) 100 mg PO DAILY@1400 DEQUAN Dextrose/Sodium Chloride (Dextrose 5%-Normal Saline) 1,000 mls @ 1,000 mls/hr IV ASDIRECTED DEQUAN Last Admin: 11/06/19 10:44 Dose: 1,000 mls/hr Ceftriaxone Sodium 1 gm/ (Sodium Chloride) 50 mls @ 100 mls/hr IV Q24H DEQUAN Last Admin: 11/06/19 15:56 Dose: 100 mls/hr Sodium Chloride (Normal Saline) 1,000 mls @ 100 mls/hr IV ASDIRECTED DEQUAN Levothyroxine Sodium (Synthroid) 88 mcg PO DAILY [facility] Polyethylene Glycol (Miralax) 17 gm PO DAILY PRN PRN Reason: Constipation Senna/Docusate Sodium (Senna Plus) 1 tab PO BID PRN PRN Reason: Constipation Labs: Laboratory Tests 11/06/19 11/06/19 11/06/19 Range/Units 09:59 10:05 11:20 WBC 4.67 (4.0-11.0) K/uL RBC 3.36 L (4.30-5.90) M/uL Hgb 10.0 L (12.0-16.0) g/dL Hct 29.9 L (36.0-46.0) % MCV 89.0 (80.0-98.0) fL MCH 29.8 (27.0-32.0) pg MCHC 33.4 (31.0-37.0) g/dL RDW Std Deviation 49.2 (28.0-62.0) fl RDW Coeff of Jimy 15 (11.0-15.0) % Plt Count 99 L (150-400) K/uL MPV 10.80 (7.40-12.00) fL Neut % (Auto) 76.5 (48.0-80.0) % Lymph % (Auto) 10.5 L (16.0-40.0) % Gonzales % (Auto) 12.6 (0.0-15.0) % Eos % (Auto) 0.4 (0.0-7.0) % Baso % (Auto) 0.0 (0.0-1.5) % Neut # (Auto) 3.6 (1.4-5.7) K/uL Lymph # (Auto) 0.5 L (0.6-2.4) K/uL Gonzales # (Auto) 0.6 (0.0-0.8) K/uL Eos # (Auto) 0.0 (0.0-0.7) K/uL Baso # (Auto) 0.0 (0.0-0.1) K/uL Nucleated RBC % 0.0 /100WBC Nucleated RBCs # 0 K/uL INR Sodium (136-145) mmol/L Potassium (3.5-5.1) mmol/L Chloride (98-107) mmol/L Carbon Dioxide (21.0-32.0) mmol/L BUN (7.0-18.0) mg/dL Creatinine (0.6-1.0) mg/dL Est Cr Clr Drug Dosing mL/min Estimated GFR (MDRD) ml/min Glucose (74-106) mg/dL POC Glucose 67 (60-110) mg/dL Calcium (8.5-10.1) mg/dL Total Bilirubin (0.2-1.0) mg/dL AST (15-37) IU/L ALT (14-63) IU/L Alkaline Phosphatase (46-116) U/L Creatine Kinase (26-308) U/L Total Protein (6.4-8.2) g/dL Albumin (3.4-5.0) g/dL Globulin (2.6-4.0) g/dL Albumin/Globulin Ratio (0.9-1.6) TSH 3rd Generation (0.36-3.74) uIU/mL Urine Color YELLOW Urine Appearance CLEAR Urine pH 5.5 (5.0-8.0) Ur Specific Polson 1.020 (1.001-1.035) Urine Protein NEGATIVE (NEGATIVE) mg/dL Urine Glucose (UA) NEGATIVE (NEGATIVE) mg/dL Urine Ketones TRACE H (NEGATIVE) mg/dL Urine Occult Blood NEGATIVE (NEGATIVE) Urine Nitrite NEGATIVE (NEGATIVE) Urine Bilirubin NEGATIVE (NEGATIVE) Urine Urobilinogen 0.2 (<2.0) EU/dL Ur Leukocyte Esterase NEGATIVE (NEGATIVE) 11/06/19 11/06/19 11/06/19 Range/Units 11:20 11:20 11:20 WBC (4.0-11.0) K/uL RBC (4.30-5.90) M/uL Hgb (12.0-16.0) g/dL Hct (36.0-46.0) % MCV (80.0-98.0) fL MCH (27.0-32.0) pg MCHC (31.0-37.0) g/dL RDW Std Deviation (28.0-62.0) fl RDW Coeff of Jimy (11.0-15.0) % Plt Count (150-400) K/uL MPV (7.40-12.00) fL Neut % (Auto) (48.0-80.0) % Lymph % (Auto) (16.0-40.0) % Gonzales % (Auto) (0.0-15.0) % Eos % (Auto) (0.0-7.0) % Baso % (Auto) (0.0-1.5) % Neut # (Auto) (1.4-5.7) K/uL Lymph # (Auto) (0.6-2.4) K/uL Gonzales # (Auto) (0.0-0.8) K/uL Eos # (Auto) (0.0-0.7) K/uL Baso # (Auto) (0.0-0.1) K/uL Nucleated RBC % /100WBC Nucleated RBCs # K/uL INR 1.12 Sodium 144 (136-145) mmol/L Potassium 3.5 (3.5-5.1) mmol/L Chloride 104 (98-107) mmol/L Carbon Dioxide 35.9 H (21.0-32.0) mmol/L BUN 34 H (7.0-18.0) mg/dL Creatinine 1.5 H (0.6-1.0) mg/dL Est Cr Clr Drug Dosing 29.96 mL/min Estimated GFR (MDRD) 35.5 ml/min Glucose 267 H (74-106) mg/dL POC Glucose (60-110) mg/dL Calcium 8.9 (8.5-10.1) mg/dL Total Bilirubin 0.2 (0.2-1.0) mg/dL AST 24 (15-37) IU/L ALT 26 (14-63) IU/L Alkaline Phosphatase 61 (46-116) U/L Creatine Kinase 151 (26-308) U/L Total Protein 5.3 L (6.4-8.2) g/dL Albumin 2.3 L (3.4-5.0) g/dL Globulin 3.0 (2.6-4.0) g/dL Albumin/Globulin Ratio 0.8 L (0.9-1.6) TSH 3rd Generation 0.04 L (0.36-3.74) uIU/mL Urine Color Urine Appearance Urine pH (5.0-8.0) Ur Specific Polson (1.001-1.035) Urine Protein (NEGATIVE) mg/dL Urine Glucose (UA) (NEGATIVE) mg/dL Urine Ketones (NEGATIVE) mg/dL Urine Occult Blood (NEGATIVE) Urine Nitrite (NEGATIVE) Urine Bilirubin (NEGATIVE) Urine Urobilinogen (<2.0) EU/dL Ur Leukocyte Esterase (NEGATIVE) 11/06/19 Range/Units 11:47 WBC (4.0-11.0) K/uL RBC (4.30-5.90) M/uL Hgb (12.0-16.0) g/dL Hct (36.0-46.0) % MCV (80.0-98.0) fL MCH (27.0-32.0) pg MCHC (31.0-37.0) g/dL RDW Std Deviation (28.0-62.0) fl RDW Coeff of Jimy (11.0-15.0) % Plt Count (150-400) K/uL MPV (7.40-12.00) fL Neut % (Auto) (48.0-80.0) % Lymph % (Auto) (16.0-40.0) % Gonzales % (Auto) (0.0-15.0) % Eos % (Auto) (0.0-7.0) % Baso % (Auto) (0.0-1.5) % Neut # (Auto) (1.4-5.7) K/uL Lymph # (Auto) (0.6-2.4) K/uL Gonzales # (Auto) (0.0-0.8) K/uL Eos # (Auto) (0.0-0.7) K/uL Baso # (Auto) (0.0-0.1) K/uL Nucleated RBC % /100WBC Nucleated RBCs # K/uL INR Sodium (136-145) mmol/L Potassium (3.5-5.1) mmol/L Chloride (98-107) mmol/L Carbon Dioxide (21.0-32.0) mmol/L BUN (7.0-18.0) mg/dL Creatinine (0.6-1.0) mg/dL Est Cr Clr Drug Dosing mL/min Estimated GFR (MDRD) ml/min Glucose (74-106) mg/dL POC Glucose 284 H (60-110) mg/dL Calcium (8.5-10.1) mg/dL Total Bilirubin (0.2-1.0) mg/dL AST (15-37) IU/L ALT (14-63) IU/L Alkaline Phosphatase (46-116) U/L Creatine Kinase (26-308) U/L Total Protein (6.4-8.2) g/dL Albumin (3.4-5.0) g/dL Globulin (2.6-4.0) g/dL Albumin/Globulin Ratio (0.9-1.6) TSH 3rd Generation (0.36-3.74) uIU/mL Urine Color Urine Appearance Urine pH (5.0-8.0) Ur Specific Polson (1.001-1.035) Urine Protein (NEGATIVE) mg/dL Urine Glucose (UA) (NEGATIVE) mg/dL Urine Ketones (NEGATIVE) mg/dL Urine Occult Blood (NEGATIVE) Urine Nitrite (NEGATIVE) Urine Bilirubin (NEGATIVE) Urine Urobilinogen (<2.0) EU/dL Ur Leukocyte Esterase (NEGATIVE) Meds: Medications Generic Name Dose Route Start Last Admin Trade Name Freq PRN Reason Stop Dose Admin Artificial Tears 1 each 11/06/19 16:15 Refresh Plus 0.5% EYEBOTH Q48H PRN Dry Eyes Divalproex Sodium 250 mg 11/06/19 22:00 Divalproex Sodium PO TID DEQUAN Fluvoxamine Maleate 100 mg 11/07/19 14:00 Fluvoxamine PO DAILY@1400 DEQUAN Dextrose/Sodium Chloride 1,000 mls @ 1,000 mls/hr 11/06/19 10:45 11/06/19 10: 44 Dextrose 5%-Normal Saline IV 1,000 mls/hr ASDIRECTED DEQUAN Administration Ceftriaxone Sodium 1 gm/ 50 mls @ 100 mls/hr 11/06/19 15:30 11/06/19 15:56 Sodium Chloride IV 100 mls/hr Q24H DEQUAN Administration Sodium Chloride 1,000 mls @ 100 mls/hr 11/06/19 15:30 Normal Saline IV ASDIRECTED [facility] Levothyroxine Sodium 88 mcg 11/07/19 09:00 Synthroid PO DAILY DEQUAN Polyethylene Glycol 17 gm 11/06/19 15:32 Miralax PO DAILY PRN Constipation Senna/Docusate Sodium 1 tab 11/06/19 15:33 Senna Plus PO BID PRN Constipation Discontinued Medications Generic Name Dose Route Start Last Admin Trade Name Freq PRN Reason Stop Dose Admin Sodium Chloride 1,000 mls @ 999 mls/hr 11/06/19 14:31 11/06/19 14:37 Normal Saline IV 11/06/19 15:31 999 mls/hr .BOLUS ONE Administration Non-Formulary Medication 100 mg 11/06/19 15:45 Fluvoxamine PO ASDIRECTED [facility] Non-Formulary Medication 1 drop 11/06/19 15:32 Polyvinyl Alcohol/Povidone [Refresh] EYEBOTH ASDIRECTED PRN Dry Eyes Senna/Docusate Sodium 1 tab 11/06/19 15:33 Senna Plus PO 11/06/19 15:34 ONETIME ONE Departure - Departure Time of Disposition: 16:42 Disposition: Refer to Observation Clinical Impression: RENEA (acute kidney injury) - Discharge Information Sepsis Event Note - Evaluation Sepsis Screening Result: No Definite Risk - Focused Exam Vital Signs: Vital Signs Temp Pulse Resp BP Pulse Ox 11/06/19 14:40 90 13 128/74 98 11/06/19 13:30 94 12 118/72 98 11/06/19 12:50 76 13 120/72 98 11/06/19 11:50 98 13 87/52 L 92 L 11/06/19 10:44 96 14 93/56 L 93 L 11/06/19 09:56 98 13 109/53 L 95 11/06/19 09:44 36.2 C 104 H 18 110/70 93 L Date Exam was Performed: 11/06/19 Time Exam was Performed: 16:39 - My Orders Last 24 Hours: My Active Orders 11/06/19 10:45 Dextrose 5%-0.9% NaCl [Dextrose 5%-Normal Saline] 1,000 ml IV ASDIRECTED 11/06/19 15:04 Admission Status [Patient Status] [ADT] Stat - Assessment/Plan Last 24 Hours: My Active Orders 11/06/19 10:45 Dextrose 5%-0.9% NaCl [Dextrose 5%-Normal Saline] 1,000 ml IV ASDIRECTED 11/06/19 15:04 Admission Status [Patient Status] [ADT] Stat
[2019-11-06] MEDS ORDERED: 50% Dextrose in Water 50 ML Syringe IVPUSH ONE (19:13)
[2019-11-06] MEDS: Dextrose 5%-0.45% NaCl 1,000 ML IV SCH (19:59)
[2019-11-06] MEDS: risperiDONE 1 MG Tab PO SCH (22:21)
[2019-11-06] MEDS: Divalproex Sodium Delayed-Release 250 MG Tab.CR PO SCH ×2 (22:21→22:31)
[2019-11-07] MEDS: Dextrose 5%-0.45% NaCl 1,000 ML IV SCH ×2 (05:20→15:24)
[2019-11-07] MEDS: risperiDONE 1 MG Tab PO SCH ×5 (06:08→23:22)
[2019-11-07] MEDS: Divalproex Sodium Delayed-Release 250 MG Tab.CR PO SCH ×5 (06:08→23:22)
[2019-11-07] MEDS: Levothyroxine 88 MCG Tab PO SCH (09:54)
[2019-11-07] MEDS ORDERED: Potassium Chloride 10% 20 MEQ/15 ML Soln 30 ML UD Cup PO ONE ×4 (10:23→14:49)
[2019-11-07] MEDS ORDERED: Potassium Chloride 20 MEQ Tab.ER PO ONE ×2 (10:33→14:22)
--- NOTE | 2019-11-07 14:26 | PCM.PN ---
- General Info Date of Service: 11/07/19 - Review of Systems Systems Review Comment:: more awake today, tracking movements with eyes, ate breakfast - Patient Data Vitals - Most Recent: Last Vital Signs Temp 36.6 C 11/07/19 12:20 Pulse 86 11/07/19 12:20 Resp 18 11/07/19 12:20 BP 96/51 L 11/07/19 12:20 Pulse Ox 92 L 11/07/19 12:20 Weight - Most Recent: 55 kg I&O - Last 24 Hours: Intake & Output 11/06/19 11/07/19 11/07/19 22:59 06:59 14:59 Intake Total 227 729 Output Total 800 Balance 227 -71 Lab Results Last 24 Hours: Laboratory Results - last 24 hr 11/06/19 11/06/19 11/06/19 Range/Units 11:20 18:57 20:17 WBC (4.0-11.0) K/uL RBC (4.30-5.90) M/uL Hgb (12.0-16.0) g/dL Hct (36.0-46.0) % MCV (80.0-98.0) fL MCH (27.0-32.0) pg MCHC (31.0-37.0) g/dL RDW Std Deviation (28.0-62.0) fl RDW Coeff of Jimy (11.0-15.0) % Plt Count (150-400) K/uL MPV (7.40-12.00) fL Add Manual Diff Neutrophils % (Manual) (48.0-80.0) % Lymphocytes % (Manual) (16.0-40.0) % Monocytes % (Manual) (0.0-15.0) % Eosinophils % (Manual) (0.0-7.0) % Nucleated RBC % /100WBC Absolute Seg Neuts (1.4-5.7) Lymphocytes # (Manual) (0.6-2.4) Monocytes # (Manual) (0.0-0.8) Eosinophils # (Manual) (0.0-0.7) Nucleated RBCs # K/uL Sodium (136-145) mmol/L Potassium (3.5-5.1) mmol/L Chloride (98-107) mmol/L Carbon Dioxide (21.0-32.0) mmol/L BUN (7.0-18.0) mg/dL Creatinine (0.6-1.0) mg/dL Est Cr Clr Drug Dosing mL/min Estimated GFR (MDRD) ml/min Glucose (74-106) mg/dL POC Glucose 49 L 111 H (60-110) mg/dL Calcium (8.5-10.1) mg/dL Ammonia (19-54) ug/dL Creatine Kinase 151 (26-308) U/L 11/07/19 11/07/19 11/07/19 Range/Units 00:10 05:45 05:45 WBC 3.56 L (4.0-11.0) K/uL RBC 3.54 L (4.30-5.90) M/uL Hgb 10.3 L (12.0-16.0) g/dL Hct 32.1 L (36.0-46.0) % MCV 90.7 (80.0-98.0) fL MCH 29.1 (27.0-32.0) pg MCHC 32.1 (31.0-37.0) g/dL RDW Std Deviation 52.0 (28.0-62.0) fl RDW Coeff of Jimy 16 H (11.0-15.0) % Plt Count 105 L (150-400) K/uL MPV 11.00 (7.40-12.00) fL Add Manual Diff YES Neutrophils % (Manual) 65 (48.0-80.0) % Lymphocytes % (Manual) 25 (16.0-40.0) % Monocytes % (Manual) 9 (0.0-15.0) % Eosinophils % (Manual) 1 (0.0-7.0) % Nucleated RBC % 0.0 /100WBC Absolute Seg Neuts 2.3 (1.4-5.7) Lymphocytes # (Manual) 0.9 (0.6-2.4) Monocytes # (Manual) 0.3 (0.0-0.8) Eosinophils # (Manual) 0.0 (0.0-0.7) Nucleated RBCs # 0 K/uL Sodium 148 H (136-145) mmol/L Potassium 3.0 L (3.5-5.1) mmol/L Chloride 109 H (98-107) mmol/L Carbon Dioxide 34.0 H (21.0-32.0) mmol/L BUN 24 H (7.0-18.0) mg/dL Creatinine 1.1 H (0.6-1.0) mg/dL Est Cr Clr Drug Dosing 43.55 mL/min Estimated GFR (MDRD) 50.8 ml/min Glucose 97 (74-106) mg/dL POC Glucose 85 (60-110) mg/dL Calcium 8.8 (8.5-10.1) mg/dL Ammonia (19-54) ug/dL Creatine Kinase (26-308) U/L 11/07/19 11/07/19 11/07/19 Range/Units 06:00 11:37 13:44 WBC (4.0-11.0) K/uL RBC (4.30-5.90) M/uL Hgb (12.0-16.0) g/dL Hct (36.0-46.0) % MCV (80.0-98.0) fL MCH (27.0-32.0) pg MCHC (31.0-37.0) g/dL RDW Std Deviation (28.0-62.0) fl RDW Coeff of Jimy (11.0-15.0) % Plt Count (150-400) K/uL MPV (7.40-12.00) fL Add Manual Diff Neutrophils % (Manual) (48.0-80.0) % Lymphocytes % (Manual) (16.0-40.0) % Monocytes % (Manual) (0.0-15.0) % Eosinophils % (Manual) (0.0-7.0) % Nucleated RBC % /100WBC Absolute Seg Neuts (1.4-5.7) Lymphocytes # (Manual) (0.6-2.4) Monocytes # (Manual) (0.0-0.8) Eosinophils # (Manual) (0.0-0.7) Nucleated RBCs # K/uL Sodium (136-145) mmol/L Potassium (3.5-5.1) mmol/L Chloride (98-107) mmol/L Carbon Dioxide (21.0-32.0) mmol/L BUN (7.0-18.0) mg/dL Creatinine (0.6-1.0) mg/dL Est Cr Clr Drug Dosing mL/min Estimated GFR (MDRD) ml/min Glucose (74-106) mg/dL POC Glucose 94 153 H (60-110) mg/dL Calcium (8.5-10.1) mg/dL Ammonia 48 (19-54) ug/dL Creatine Kinase (26-308) U/L Med Orders - Current: Current Medications Artificial Tears (Refresh Plus 0.5%) 1 each EYEBOTH Q48H PRN PRN Reason: Dry Eyes Divalproex Sodium (Divalproex Sodium) 250 mg PO TID [facility] Last Admin: 11/07/19 10:20 Dose: 250 mg Fluvoxamine Maleate (Fluvoxamine) 100 mg PO DAILY@1400 [facility] Dextrose/Sodium Chloride (Dextrose 5%-Normal Saline) 1,000 mls @ 1,000 mls/hr IV ASDIRECTED [facility] Last Admin: 11/06/19 10:44 Dose: 1,000 mls/hr Ceftriaxone Sodium 1 gm/ (Sodium Chloride) 50 mls @ 100 mls/hr IV Q24H [facility] Last Admin: 11/06/19 15:56 Dose: 100 mls/hr Dextrose/Sodium Chloride (Dextrose 5%-1/2 Ns) 1,000 mls @ 50 mls/hr IV ASDIRECTED [facility] Last Admin: 11/07/19 05:20 Dose: 100 mls/hr Levothyroxine Sodium (Synthroid) 88 mcg PO DAILY [facility] Last Admin: 11/07/19 09:54 Dose: 88 mcg Polyethylene Glycol (Miralax) 17 gm PO DAILY PRN PRN Reason: Constipation Potassium Chloride (Klor-Con M20) 40 meq PO ONETIME ONE Stop: 11/07/19 14:23 Risperidone (Risperidal) 1 mg PO TID [facility] Last Admin: 11/07/19 10:20 Dose: 1 mg Senna/Docusate Sodium (Senna Plus) 1 tab PO BID PRN PRN Reason: Constipation Discontinued Medications Dextrose/Water (Dextrose 50% In Water) 25 ml IVPUSH ONETIME ONE Stop: 11/06/19 19:14 Last Admin: 11/06/19 19:44 Dose: 25 ml Sodium Chloride (Normal Saline) 1,000 mls @ 999 mls/hr IV .BOLUS ONE Stop: 11/06/19 15:31 Last Admin: 11/06/19 14:37 Dose: 999 mls/hr Sodium Chloride (Normal Saline) 1,000 mls @ 100 mls/hr IV ASDIRECTED [facility] Last Admin: 11/06/19 17:32 Dose: 100 mls/hr Non-Formulary Medication (Fluvoxamine) 100 mg PO ASDIRECTED [facility] Non-Formulary Medication (Polyvinyl Alcohol/Povidone [Refresh]) 1 drop EYEBOTH ASDIRECTED PRN PRN Reason: Dry Eyes Potassium Chloride (Klor-Con M20) 40 meq PO ONETIME ONE Stop: 11/07/19 10:34 Last Admin: 11/07/19 12:35 Dose: Not Given Potassium Chloride (Potassium Chloride) 40 meq PO ONETIME ONE Stop: 11/07/19 11:06 Last Admin: 11/07/19 11:18 Dose: 40 meq Potassium Chloride (Potassium Chloride) 40 meq PO ONETIME ONE Stop: 11/07/19 11:07 Senna/Docusate Sodium (Senna Plus) 1 tab PO ONETIME ONE Stop: 11/06/19 15:34 - Exam General: No Acute Distress Neck: Supple Lungs: Clear to Auscultation, Normal Respiratory Effort Cardiovascular: Regular Rate, Regular Rhythm GI/Abdominal Exam: Soft, Non-Tender Extremities: Pedal Edema (+1 edema) Sepsis Event Note - Evaluation Sepsis Screening Result: No Definite Risk - Focused Exam Vital Signs: Vital Signs Temp Pulse Resp BP Pulse Ox 11/07/19 12:20 36.6 C 86 18 96/51 L 92 L 11/07/19 08:00 36.6 C 88 16 115/56 L 91 L 11/07/19 04:00 36.6 C 88 13 116/57 L 90 L Date Exam was Performed: 11/07/19 Time Exam was Performed: 14:23 - Problem List Review Problem List Initiated/Reviewed/Updated: Yes - My Orders Last 24 Hours: My Active Orders 11/06/19 19:13 Accu Check [Blood Glucose Check, Bedside] [RC] ONETIME 11/06/19 19:15 Dextrose 5%-0.45% NaCl [Dextrose 5%-1/2 NS] 1,000 ml IV ASDIRECTED 11/07/19 02:25 Insert Urinary Catheter [OM.PC] Q24H 11/07/19 13:44 Depakote Level [VALPROIC ACID] [CHEM] Routine 11/07/19 14:22 Potassium Chloride [Klor-Con M20] 40 meq PO ONETIME ONE - Plan Plan:: 58 yo female admitted for RENEA, dehydration and UTI. 1. UTI: continue Rocephin 2. RENEA- improving on IV fluids 3. Hypoglycemia- will monitor for signs of hypoglycemia and check sugar every 6 hours
[2019-11-07] MEDS: cefTRIAXone 1 GM in Sodium Chloride 0.9% 50 ML IV SCH (15:25)
[2019-11-07] MEDS: fluvoxaMINE 50 MG Tab PO SCH (15:32)
[2019-11-08] MEDS: Dextrose 5%-0.45% NaCl 1,000 ML IV SCH (02:43)
[2019-11-08] MEDS: risperiDONE 1 MG Tab PO SCH ×3 (06:00→22:03)
[2019-11-08] MEDS: Divalproex Sodium Delayed-Release 250 MG Tab.CR PO SCH ×3 (06:00→22:03)
[2019-11-08 06:37] LABS: BLOOD UREA NITROGEN,BUN 12 mg/dL (7.0-18.0); CHLORIDE,CL 112 mmol/L (98-107); GLUCOSE RANDOM 100 mg/dL (74-106); SODIUM,NA 147 mmol/L (136-145)
[2019-11-08] MEDS: Levothyroxine 88 MCG Tab PO SCH (09:46)
--- NOTE | 2019-11-08 10:31 | PCM.PN ---
- General Info Date of Service: 11/08/19 Subjective Update: Patient awake, sitting up in chair and eating. Still not speaking, hasn't tried walking. At baseline can walk, go to bathroom on her own, feed herself which she hasn't been doing. - Review of Systems Systems Review Comment:: Unable to obtain- patient non verbal - Patient Data Vitals - Most Recent: Last Vital Signs Temp 97.4 F 11/08/19 08:00 Pulse 88 11/08/19 08:00 Resp 16 11/08/19 08:00 BP 114/59 L 11/08/19 08:00 Pulse Ox 92 L 11/08/19 08:00 Weight - Most Recent: 55 kg I&O - Last 24 Hours: Intake & Output 11/07/19 11/08/19 11/08/19 22:59 06:59 14:59 Intake Total 2170 1760 Output Total 0 1500 Balance 2170 260 Lab Results Last 24 Hours: Laboratory Results - last 24 hr 11/07/19 11/07/19 11/07/19 Range/Units 11:37 13:44 13:44 WBC (4.0-11.0) K/uL RBC (4.30-5.90) M/uL Hgb (12.0-16.0) g/dL Hct (36.0-46.0) % MCV (80.0-98.0) fL MCH (27.0-32.0) pg MCHC (31.0-37.0) g/dL RDW Std Deviation (28.0-62.0) fl RDW Coeff of Jimy (11.0-15.0) % Plt Count (150-400) K/uL MPV (7.40-12.00) fL Neut % (Auto) (48.0-80.0) % Lymph % (Auto) (16.0-40.0) % [place] % (Auto) (0.0-15.0) % Eos % (Auto) (0.0-7.0) % Baso % (Auto) (0.0-1.5) % Neut # (Auto) (1.4-5.7) K/uL Lymph # (Auto) (0.6-2.4) K/uL [place] # (Auto) (0.0-0.8) K/uL Eos # (Auto) (0.0-0.7) K/uL Baso # (Auto) (0.0-0.1) K/uL Nucleated RBC % /100WBC Nucleated RBCs # K/uL Sodium (136-145) mmol/L Potassium (3.5-5.1) mmol/L Chloride (98-107) mmol/L Carbon Dioxide (21.0-32.0) mmol/L BUN (7.0-18.0) mg/dL Creatinine (0.6-1.0) mg/dL Est Cr Clr Drug Dosing mL/min Estimated GFR (MDRD) ml/min Glucose (74-106) mg/dL POC Glucose 153 H (60-110) mg/dL Calcium (8.5-10.1) mg/dL Ammonia 48 (19-54) ug/dL Valproic Acid 18.8 L (50.0-100.0) ug/mL 11/07/19 11/08/19 11/08/19 Range/Units 18:04 00:06 06:00 WBC 4.90 (4.0-11.0) K/uL RBC 3.57 L (4.30-5.90) M/uL Hgb 10.6 L (12.0-16.0) g/dL Hct 32.4 L (36.0-46.0) % MCV 90.8 (80.0-98.0) fL MCH 29.7 (27.0-32.0) pg MCHC 32.7 (31.0-37.0) g/dL RDW Std Deviation 52.2 (28.0-62.0) fl RDW Coeff of Jimy 16 H (11.0-15.0) % Plt Count 108 L (150-400) K/uL MPV 10.70 (7.40-12.00) fL Neut % (Auto) 56.5 (48.0-80.0) % Lymph % (Auto) 22.7 (16.0-40.0) % [place] % (Auto) 19.0 H (0.0-15.0) % Eos % (Auto) 1.6 (0.0-7.0) % Baso % (Auto) 0.2 (0.0-1.5) % Neut # (Auto) 2.8 (1.4-5.7) K/uL Lymph # (Auto) 1.1 (0.6-2.4) K/uL [place] # (Auto) 0.9 H (0.0-0.8) K/uL Eos # (Auto) 0.1 (0.0-0.7) K/uL Baso # (Auto) 0.0 (0.0-0.1) K/uL Nucleated RBC % 0.0 /100WBC Nucleated RBCs # 0 K/uL Sodium (136-145) mmol/L Potassium (3.5-5.1) mmol/L Chloride (98-107) mmol/L Carbon Dioxide (21.0-32.0) mmol/L BUN (7.0-18.0) mg/dL Creatinine (0.6-1.0) mg/dL Est Cr Clr Drug Dosing mL/min Estimated GFR (MDRD) ml/min Glucose (74-106) mg/dL POC Glucose 145 H 85 (60-110) mg/dL Calcium (8.5-10.1) mg/dL Ammonia (19-54) ug/dL Valproic Acid (50.0-100.0) ug/mL 11/08/19 11/08/19 Range/Units 06:00 06:00 WBC (4.0-11.0) K/uL RBC (4.30-5.90) M/uL Hgb (12.0-16.0) g/dL Hct (36.0-46.0) % MCV (80.0-98.0) fL MCH (27.0-32.0) pg MCHC (31.0-37.0) g/dL RDW Std Deviation (28.0-62.0) fl RDW Coeff of Jimy (11.0-15.0) % Plt Count (150-400) K/uL MPV (7.40-12.00) fL Neut % (Auto) (48.0-80.0) % Lymph % (Auto) (16.0-40.0) % [place] % (Auto) (0.0-15.0) % Eos % (Auto) (0.0-7.0) % Baso % (Auto) (0.0-1.5) % Neut # (Auto) (1.4-5.7) K/uL Lymph # (Auto) (0.6-2.4) K/uL [place] # (Auto) (0.0-0.8) K/uL Eos # (Auto) (0.0-0.7) K/uL Baso # (Auto) (0.0-0.1) K/uL Nucleated RBC % /100WBC Nucleated RBCs # K/uL Sodium 147 H (136-145) mmol/L Potassium 4.0 (3.5-5.1) mmol/L Chloride 112 H (98-107) mmol/L Carbon Dioxide 28.0 (21.0-32.0) mmol/L BUN 12 (7.0-18.0) mg/dL Creatinine 0.9 (0.6-1.0) mg/dL Est Cr Clr Drug Dosing 53.23 mL/min Estimated GFR (MDRD) > 60.0 ml/min Glucose 100 (74-106) mg/dL POC Glucose 97 (60-110) mg/dL Calcium 8.6 (8.5-10.1) mg/dL Ammonia (19-54) ug/dL Valproic Acid (50.0-100.0) ug/mL Med Orders - Current: Current Medications Artificial Tears (Refresh Plus 0.5%) 1 each EYEBOTH Q48H PRN PRN Reason: Dry Eyes Divalproex Sodium (Divalproex Sodium) 250 mg PO TID [facility] Last Admin: 11/08/19 06:00 Dose: 250 mg Fluvoxamine Maleate (Fluvoxamine) 100 mg PO DAILY@1400 [facility] Last Admin: 11/07/19 15:32 Dose: 100 mg Dextrose/Sodium Chloride (Dextrose 5%-Normal Saline) 1,000 mls @ 1,000 mls/hr IV ASDIRECTED [facility] Last Admin: 11/06/19 10:44 Dose: 1,000 mls/hr Ceftriaxone Sodium 1 gm/ (Sodium Chloride) 50 mls @ 100 mls/hr IV Q24H [facility] Last Admin: 11/07/19 15:25 Dose: 100 mls/hr Levothyroxine Sodium (Synthroid) 88 mcg PO DAILY [facility] Last Admin: 11/08/19 09:46 Dose: 88 mcg Polyethylene Glycol (Miralax) 17 gm PO DAILY PRN PRN Reason: Constipation Last Admin: 11/07/19 15:25 Dose: 17 gm Risperidone (Risperidal) 1 mg PO TID [facility] Last Admin: 11/08/19 06:00 Dose: 1 mg Senna/Docusate Sodium (Senna Plus) 1 tab PO BID PRN PRN Reason: Constipation Discontinued Medications Dextrose/Water (Dextrose 50% In Water) 25 ml IVPUSH ONETIME ONE Stop: 11/06/19 19:14 Last Admin: 11/06/19 19:44 Dose: 25 ml Sodium Chloride (Normal Saline) 1,000 mls @ 999 mls/hr IV .BOLUS ONE Stop: 11/06/19 15:31 Last Admin: 11/06/19 14:37 Dose: 999 mls/hr Sodium Chloride (Normal Saline) 1,000 mls @ 100 mls/hr IV ASDIRECTED [facility] Last Admin: 11/06/19 17:32 Dose: 100 mls/hr Dextrose/Sodium Chloride (Dextrose 5%-1/2 Ns) 1,000 mls @ 50 mls/hr IV ASDIRECTED [facility] Last Admin: 11/08/19 02:43 Dose: 100 mls/hr Non-Formulary Medication (Fluvoxamine) 100 mg PO ASDIRECTED [facility] Non-Formulary Medication (Polyvinyl Alcohol/Povidone [Refresh]) 1 drop EYEBOTH ASDIRECTED PRN PRN Reason: Dry Eyes Potassium Chloride (Klor-Con M20) 40 meq PO ONETIME ONE Stop: 11/07/19 10:34 Last Admin: 11/07/19 12:35 Dose: Not Given Potassium Chloride (Potassium Chloride) 40 meq PO ONETIME ONE Stop: 11/07/19 11:06 Last Admin: 11/07/19 11:18 Dose: 40 meq Potassium Chloride (Potassium Chloride) 40 meq PO ONETIME ONE Stop: 11/07/19 11:07 Potassium Chloride (Klor-Con M20) 40 meq PO ONETIME ONE Stop: 11/07/19 14:23 Last Admin: 11/08/19 08:01 Dose: Not Given Potassium Chloride (Potassium Chloride) 40 meq PO ONETIME ONE Stop: 11/07/19 14:50 Last Admin: 11/07/19 15:24 Dose: 40 meq Senna/Docusate Sodium (Senna Plus) 1 tab PO ONETIME ONE Stop: 11/06/19 15:34 - Exam General: Alert Lungs: Clear to Auscultation, Normal Respiratory Effort Cardiovascular: Regular Rate, Regular Rhythm GI/Abdominal Exam: Normal Bowel Sounds, Soft, Non-Tender, No Distention Extremities: No Pedal Edema Skin: Warm, Dry Psy/Mental Status: Alert Sepsis Event Note - Evaluation Sepsis Screening Result: No Definite Risk - Focused Exam Vital Signs: Vital Signs Temp Pulse Resp BP Pulse Ox 11/08/19 08:00 97.4 F 88 16 114/59 L 92 L 11/08/19 04:00 97 F 79 16 111/59 L 92 L 11/08/19 00:00 97.6 F 85 15 109/55 L 94 L Date Exam was Performed: 11/08/19 Time Exam was Performed: 10:28 - Problem List Review Problem List Initiated/Reviewed/Updated: Yes - My Orders Last 24 Hours: My Active Orders 11/07/19 14:00 fluvoxaMINE 100 mg PO DAILY@1400 11/08/19 09:54 DC Quijano Catheter [Urinary Catheter Removal] [RC] Per Unit Routine - Plan Plan:: 58 yo female admitted for RENEA, dehydration and UTI. 1. UTI: continue Rocephin 2. RENEA- resolved, will D/C fluids 3. Hypoglycemia-improved, patient now eating, will monitor for signs of hypoglycemia and check sugar every 6 hours Will D/C quijano and try to get patient walking. Patient is more alert and eating now.
[2019-11-08] MEDS: fluvoxaMINE 50 MG Tab PO SCH (16:02)
[2019-11-08] MEDS: cefTRIAXone 1 GM in Sodium Chloride 0.9% 50 ML IV SCH (16:02)
[2019-11-09] MEDS: risperiDONE 1 MG Tab PO SCH (05:13)
[2019-11-09] MEDS: Divalproex Sodium Delayed-Release 250 MG Tab.CR PO SCH (05:13)
[2019-11-09 06:28] LABS: BLOOD UREA NITROGEN,BUN 12 mg/dL (7.0-18.0); CARBON DIOXIDE,CO2 27.2 mmol/L (21.0-32.0); CHLORIDE,CL 109 mmol/L (98-107); GLUCOSE RANDOM 104 mg/dL (74-106); POTASSIUM,K 4.2 mmol/L (3.5-5.1); SODIUM,NA 145 mmol/L (136-145)
[2019-11-09] MEDS ORDERED: Levothyroxine 88 MCG Tab PO SCH (07:30)
[2019-11-09 08:00] VITALS: BP 107/59; PULSE 76
--- NOTE | 2019-11-09 11:06 | PCM.DCSUM1 ---
<Justyna Purvis - Last Filed: 11/09/19 12:19> Discharge Summary - Hospital Course HPI Initial Comments: Admission Date:11/06/19 Discharge Date: 11/09/19 Admission Diagnosis: 1. RENEA 2. Hypoglycemia 3. Normocytic anemia 4. Chronic conditions-hypothyroidism, schizophrenia, depression, LE edema Discharge Diagnosis: 1. RENEA- resolved 2. Hypoglycemia-resolved 3. Normocytic anemia-stable 4. Chronic conditions-hypothyroidism, schizophrenia, depression, LE edema Procedures: None Consults: None Hospital Course: The patient is a 58-year-old female who is an [facility] client with PMH of schizophrenia, LE edema, and hypothyroidism who presents with caregiver with several concerns. Caregiver reports she has been shaking, decreased appetite and holding her arms up by her chest. They report that she finished course of azithromycin on 11/02 for UTI and then started on Bactrim 11/04 for UTI. In the ER, lab work showed no leukocytosis, anemia with hemoglobin of 10, elevated BUN/Cr of 34/1.5, low TSH, UA positive for ketones, and she had a glucose of 67. They gave her an amp of D50 and her glucose improved to 284. Head CT showed no acute issues. CT ab/pelvis showed air in the bladder (she was cathed for urine sample), gallstones with GB dilation that could be due to fasting, and increased stool. She was admitted to the medical floor which she was given IVF and her RENEA resolved. She developed hypoglycemia again, was given another amp of D50 and started on D51/2NS. Her urine did not show signs of infection on admission, her Bactrim was stopped, and she was placed on Ceftriaxone. A Bains was placed after she was not urinating on her own and bladder scan showed urinary retention. As her condition improved, she started eating/drinking on her own, her glucose levels improved, she was able to ambulate and urinate by herself. She was continued on home meds for chronic conditions. By day of discharge, caregivers stated she was back to baseline and ready to go home. Disposition: Nursing Home- [facility] Discharge Condition: vitals stable, tolerating oral diet, ambulating without difficulty, symptom improvement Discharge Instructions: regular diet as tolerated, activity as tolerated, take medications as prescribed. Symptoms to report to physician include fever/chills , chest pain, shortness of breath, abdominal pain, erythema, drainage/discharge , poor appetite, or not improving as expected. Discharge Medications: Divalproex Sodium [Depakote] 250 mg PO TID Polyethylene Glycol 3350 [MiraLAX] 1 dose PO ASDIRECTED PRN Polyvinyl Alcohol/Povidone [Refresh] 1 drop EYEBOTH ASDIRECTED PRN fluvoxaMINE [Luvox] 100 mg PO ASDIRECTED Levothyroxine [Synthroid] 88 mcg PO DAILY Docusate Sodium/Sennosides [Senna Plus] 1 tab PO BID PRN tablet Follow-up: 1. PCP- Dr. Paul 11/16/19 - Discharge Data Discharge Date: 11/09/19 Discharge Disposition: Home, Self-Care 01 Condition: Stable - Referral to Home Health Primary Care Physician: Tresa Barnes, DO - Patient Instructions Diet: Usual Diet as Tolerated Activity: As Tolerated Showering/Bathing: May Shower Notify Provider of: Fever, Increased Pain, Swelling and Redness, Drainage, Nausea and/or Vomiting Other/Special Instructions: Additional symptoms include chest pain, shortness of breath, abdominal pain, not urinating, not eating. - Discharge Plan *PRESCRIPTION DRUG MONITORING PROGRAM REVIEWED*: No *COPY OF PRESCRIPTION DRUG MONITORING REPORT IN PATIENT FABRICE: No Home Medications: Home Meds Divalproex Sodium [Depakote] 250 mg PO TID 09/06/15 [History] Polyethylene Glycol 3350 [MiraLAX] 1 dose PO ASDIRECTED PRN 09/06/15 [History] Polyvinyl Alcohol/Povidone [Refresh] 1 drop EYEBOTH ASDIRECTED PRN 09/06/15 [ History] fluvoxaMINE [Luvox] 100 mg PO ASDIRECTED 09/06/15 [History] Levothyroxine [Synthroid] 88 mcg PO DAILY 01/27/18 [History] Docusate Sodium/Sennosides [Senna Plus] 1 tab PO BID PRN tablet 11/09/19 [Rx] Patient Handouts: Constipation, Adult, [id number], Dehydration, Elderly, Easy -to-Read Referrals: [facility] [Outside] Artie Paul MD [Ordering Only Provider] - 11/16/19 2:00 pm - Discharge Summary/Plan Comment DC Time >30 min.: No - Patient Data Vitals - Most Recent: Last Vital Signs Temp 97.8 F 11/09/19 07:59 Pulse 76 11/09/19 07:59 Resp 16 11/09/19 07:59 BP 107/59 L 11/09/19 07:59 Pulse Ox 93 L 11/09/19 07:59 Weight - Most Recent: 55 kg I&O - Last 24 hours: Intake & Output 11/08/19 11/09/19 11/09/19 22:59 06:59 14:59 Intake Total 240 840 Output Total 270 0 Balance -30 840 Lab Results - Last 24 hrs: Laboratory Results - last 24 hr 11/08/19 11/08/19 11/09/19 Range/Units 12:34 18:16 01:08 WBC (4.0-11.0) K/uL RBC (4.30-5.90) M/uL Hgb (12.0-16.0) g/dL Hct (36.0-46.0) % MCV (80.0-98.0) fL MCH (27.0-32.0) pg MCHC (31.0-37.0) g/dL RDW Std Deviation (28.0-62.0) fl RDW Coeff of Jimy (11.0-15.0) % Plt Count (150-400) K/uL MPV (7.40-12.00) fL Neut % (Auto) (48.0-80.0) % Lymph % (Auto) (16.0-40.0) % [place] % (Auto) (0.0-15.0) % Eos % (Auto) (0.0-7.0) % Baso % (Auto) (0.0-1.5) % Neut # (Auto) (1.4-5.7) K/uL Lymph # (Auto) (0.6-2.4) K/uL [place] # (Auto) (0.0-0.8) K/uL Eos # (Auto) (0.0-0.7) K/uL Baso # (Auto) (0.0-0.1) K/uL Nucleated RBC % /100WBC Nucleated RBCs # K/uL Sodium (136-145) mmol/L Potassium (3.5-5.1) mmol/L Chloride (98-107) mmol/L Carbon Dioxide (21.0-32.0) mmol/L BUN (7.0-18.0) mg/dL Creatinine (0.6-1.0) mg/dL Est Cr Clr Drug Dosing mL/min Estimated GFR (MDRD) ml/min Glucose (74-106) mg/dL POC Glucose 80 79 110 (60-110) mg/dL Calcium (8.5-10.1) mg/dL 11/09/19 11/09/19 11/09/19 Range/Units 05:50 05:55 05:55 WBC 5.51 (4.0-11.0) K/uL RBC 3.55 L (4.30-5.90) M/uL Hgb 10.5 L (12.0-16.0) g/dL Hct 32.1 L (36.0-46.0) % MCV 90.4 (80.0-98.0) fL MCH 29.6 (27.0-32.0) pg MCHC 32.7 (31.0-37.0) g/dL RDW Std Deviation 51.6 (28.0-62.0) fl RDW Coeff of Jimy 16 H (11.0-15.0) % Plt Count 121 L (150-400) K/uL MPV 10.90 (7.40-12.00) fL Neut % (Auto) 59.8 (48.0-80.0) % Lymph % (Auto) 20.9 (16.0-40.0) % [place] % (Auto) 16.9 H (0.0-15.0) % Eos % (Auto) 2.2 (0.0-7.0) % Baso % (Auto) 0.2 (0.0-1.5) % Neut # (Auto) 3.3 (1.4-5.7) K/uL Lymph # (Auto) 1.2 (0.6-2.4) K/uL [place] # (Auto) 0.9 H (0.0-0.8) K/uL Eos # (Auto) 0.1 (0.0-0.7) K/uL Baso # (Auto) 0.0 (0.0-0.1) K/uL Nucleated RBC % 0.0 /100WBC Nucleated RBCs # 0 K/uL Sodium 145 (136-145) mmol/L Potassium 4.2 (3.5-5.1) mmol/L Chloride 109 H (98-107) mmol/L Carbon Dioxide 27.2 (21.0-32.0) mmol/L BUN 12 (7.0-18.0) mg/dL Creatinine 0.8 (0.6-1.0) mg/dL Est Cr Clr Drug Dosing 59.89 mL/min Estimated GFR (MDRD) > 60.0 ml/min Glucose 104 (74-106) mg/dL POC Glucose 106 (60-110) mg/dL Calcium 8.7 (8.5-10.1) mg/dL Med Orders - Current: Current Medications Artificial Tears (Refresh Plus 0.5%) 1 each EYEBOTH Q48H PRN PRN Reason: Dry Eyes Divalproex Sodium (Divalproex Sodium) 250 mg PO TID [facility] Last Admin: 11/09/19 05:13 Dose: 250 mg Fluvoxamine Maleate (Fluvoxamine) 100 mg PO DAILY@1400 [facility] Last Admin: 11/08/19 16:02 Dose: 100 mg Ceftriaxone Sodium 1 gm/ (Sodium Chloride) 50 mls @ 100 mls/hr IV Q24H [facility] Last Admin: 11/08/19 16:02 Dose: 100 mls/hr Levothyroxine Sodium (Synthroid) 88 mcg PO ACBREAKFAST [facility] Last Admin: 11/09/19 06:42 Dose: 88 mcg Polyethylene Glycol (Miralax) 17 gm PO DAILY PRN PRN Reason: Constipation Last Admin: 11/07/19 15:25 Dose: 17 gm Risperidone (Risperidal) 1 mg PO TID [facility] Last Admin: 11/09/19 05:13 Dose: 1 mg Senna/Docusate Sodium (Senna Plus) 1 tab PO BID PRN PRN Reason: Constipation Discontinued Medications Dextrose/Water (Dextrose 50% In Water) 25 ml IVPUSH ONETIME ONE Stop: 11/06/19 19:14 Last Admin: 11/06/19 19:44 Dose: 25 ml Dextrose/Sodium Chloride (Dextrose 5%-Normal Saline) 1,000 mls @ 1,000 mls/hr IV ASDIRECTED [facility] Last Admin: 11/06/19 10:44 Dose: 1,000 mls/hr Sodium Chloride (Normal Saline) 1,000 mls @ 999 mls/hr IV .BOLUS ONE Stop: 11/06/19 15:31 Last Admin: 11/06/19 14:37 Dose: 999 mls/hr Sodium Chloride (Normal Saline) 1,000 mls @ 100 mls/hr IV ASDIRECTED [facility] Last Admin: 11/06/19 17:32 Dose: 100 mls/hr Dextrose/Sodium Chloride (Dextrose 5%-1/2 Ns) 1,000 mls @ 50 mls/hr IV ASDIRECTED [facility] Last Admin: 11/08/19 02:43 Dose: 100 mls/hr Levothyroxine Sodium (Synthroid) 88 mcg PO DAILY [facility] Last Admin: 11/08/19 09:46 Dose: 88 mcg Non-Formulary Medication (Fluvoxamine) 100 mg PO ASDIRECTED [facility] Non-Formulary Medication (Polyvinyl Alcohol/Povidone [Refresh]) 1 drop EYEBOTH ASDIRECTED PRN PRN Reason: Dry Eyes Potassium Chloride (Klor-Con M20) 40 meq PO ONETIME ONE Stop: 11/07/19 10:34 Last Admin: 11/07/19 12:35 Dose: Not Given Potassium Chloride (Potassium Chloride) 40 meq PO ONETIME ONE Stop: 11/07/19 11:06 Last Admin: 11/07/19 11:18 Dose: 40 meq Potassium Chloride (Potassium Chloride) 40 meq PO ONETIME ONE Stop: 11/07/19 11:07 Potassium Chloride (Klor-Con M20) 40 meq PO ONETIME ONE Stop: 11/07/19 14:23 Last Admin: 11/08/19 08:01 Dose: Not Given Potassium Chloride (Potassium Chloride) 40 meq PO ONETIME ONE Stop: 11/07/19 14:50 Last Admin: 11/07/19 15:24 Dose: 40 meq Senna/Docusate Sodium (Senna Plus) 1 tab PO ONETIME ONE Stop: 11/06/19 15:34 <Charanjit Michelle - Last Filed: 11/11/19 11:12> Discharge Summary - Referral to Home Health Primary Care Physician: Tresa Barnes DO - Patient Data Vitals - Most Recent: Last Vital Signs Temp 36.6 C 11/09/19 07:59 Pulse 76 11/09/19 07:59 Resp 16 11/09/19 07:59 BP 107/59 L 11/09/19 07:59 Pulse Ox 93 L 11/09/19 07:59 Med Orders - Current: Current Medications Discontinued Medications Artificial Tears (Refresh Plus 0.5%) 1 each EYEBOTH Q48H PRN PRN Reason: Dry Eyes Dextrose/Water (Dextrose 50% In Water) 25 ml IVPUSH ONETIME ONE Stop: 11/06/19 19:14 Last Admin: 11/06/19 19:44 Dose: 25 ml Divalproex Sodium (Divalproex Sodium) 250 mg PO TID [facility] Last Admin: 11/09/19 05:13 Dose: 250 mg Fluvoxamine Maleate (Fluvoxamine) 100 mg PO DAILY@1400 [facility] Last Admin: 11/08/19 16:02 Dose: 100 mg Dextrose/Sodium Chloride (Dextrose 5%-Normal Saline) 1,000 mls @ 1,000 mls/hr IV ASDIRECTED [facility] Last Admin: 11/06/19 10:44 Dose: 1,000 mls/hr Sodium Chloride (Normal Saline) 1,000 mls @ 999 mls/hr IV .BOLUS ONE Stop: 11/06/19 15:31 Last Admin: 11/06/19 14:37 Dose: 999 mls/hr Ceftriaxone Sodium 1 gm/ (Sodium Chloride) 50 mls @ 100 mls/hr IV Q24H [facility] Last Admin: 11/08/19 16:02 Dose: 100 mls/hr Sodium Chloride (Normal Saline) 1,000 mls @ 100 mls/hr IV ASDIRECTED [facility] Last Admin: 11/06/19 17:32 Dose: 100 mls/hr Dextrose/Sodium Chloride (Dextrose 5%-1/2 Ns) 1,000 mls @ 50 mls/hr IV ASDIRECTED [facility] Last Admin: 11/08/19 02:43 Dose: 100 mls/hr Levothyroxine Sodium (Synthroid) 88 mcg PO DAILY [facility] Last Admin: 11/08/19 09:46 Dose: 88 mcg Levothyroxine Sodium (Synthroid) 88 mcg PO ACBREAKFAST [facility] Last Admin: 11/09/19 06:42 Dose: 88 mcg Non-Formulary Medication (Fluvoxamine) 100 mg PO ASDIRECTED [facility] Non-Formulary Medication (Polyvinyl Alcohol/Povidone [Refresh]) 1 drop EYEBOTH ASDIRECTED PRN PRN Reason: Dry Eyes Polyethylene Glycol (Miralax) 17 gm PO DAILY PRN PRN Reason: Constipation Last Admin: 11/07/19 15:25 Dose: 17 gm Potassium Chloride (Klor-Con M20) 40 meq PO ONETIME ONE Stop: 11/07/19 10:34 Last Admin: 11/07/19 12:35 Dose: Not Given Potassium Chloride (Potassium Chloride) 40 meq PO ONETIME ONE Stop: 11/07/19 11:06 Last Admin: 11/07/19 11:18 Dose: 40 meq Potassium Chloride (Potassium Chloride) 40 meq PO ONETIME ONE Stop: 11/07/19 11:07 Potassium Chloride (Klor-Con M20) 40 meq PO ONETIME ONE Stop: 11/07/19 14:23 Last Admin: 11/08/19 08:01 Dose: Not Given Potassium Chloride (Potassium Chloride) 40 meq PO ONETIME ONE Stop: 11/07/19 14:50 Last Admin: 11/07/19 15:24 Dose: 40 meq Risperidone (Risperidal) 1 mg PO TID [facility] Last Admin: 11/09/19 05:13 Dose: 1 mg Senna/Docusate Sodium (Senna Plus) 1 tab PO ONETIME ONE Stop: 11/06/19 15:34 Senna/Docusate Sodium (Senna Plus) 1 tab PO BID PRN PRN Reason: Constipation - Free Text/Narrative Note: I have seen and evaluated the patient with the resident. I have discussed findings and treatment plan with the resident. I agree with the assessment and plan in the following note.
== END 2019-11-09 11:11 | disposition home or self-care (01) ==
LOC: MW.ED 09:28 → MW.MS 15:29
PROVIDERS: ADMIT Internal Medicine; ATTEND Internal Medicine
DX: N17.9 Acute kidney failure, unspecified (principal); N39.0 Urinary tract infection, site not specified; D64.9 Anemia, unspecified; E16.2 Hypoglycemia, unspecified; E03.9 Hypothyroidism, unspecified; E06.3 Autoimmune thyroiditis; F20.9 Schizophrenia, unspecified; F32.9 Major depressive disorder, single episode, unspecified; R60.9 Edema, unspecified; I10 Essential (primary) hypertension
CPT/HCPCS: 36415; 51701; 51702; 70450; 74176; 80048; 80053; 80164; 81003; 82140; 82550; 82962; 84443; 85025; 85610; 96360; 96361; 99285; A9270; J0696; J7030; J7042; J7050

== ENCOUNTER 2019-12-12 11:08 | Inpatient (IN) | payer MEDICARE, MEDICAID ==
[2019-12-12 13:50] LABS: BLOOD UREA NITROGEN,BUN 26 mg/dL (7.0-18.0); CARBON DIOXIDE,CO2 35.9 mmol/L (21.0-32.0); CHLORIDE,CL 107 mmol/L (98-107); GLUCOSE RANDOM 75 mg/dL (74-106); LIPASE 477 U/L (73-393); POTASSIUM,K 4.9 mmol/L (3.5-5.1); SODIUM,NA 148 mmol/L (136-145)
--- NOTE | 2019-12-12 14:13 | CR ---
Chest: Portable view of the chest was obtained. Comparison: No prior chest imaging is available. Heart size is within normal limits for portable technique. Tortuous thoracic aorta is seen. Lungs show slight bibasilar atelectasis. Lungs otherwise are clear. Bony structures show scoliosis within the spine and osteopenia. No acute osseous finding is seen. Impression: 1. Findings which are believed to be incidental as noted above. 2. Nothing acute is appreciated on portable chest x-ray. Diagnostic code #2 Study was dictated in [place] [employer]
[2019-12-12] MEDS ORDERED: Iopamidol 755 MG/ML 500 ML Multipack Bottle IVPUSH STA (14:33)
[2019-12-12] MEDS: Sodium Chloride 0.9% 1,000 ML IV ONE ×2 (14:39)
--- NOTE | 2019-12-12 14:58 | CT ---
Head CT Technique: Multiple axial sections through the brain were obtained. Intravenous contrast was not utilized. Study was repeated with intravenous contrast. Comparison: Prior head CT study of 11/06/19. Findings: Ventricles along with basal cisterns and sulci over the convexities appear within normal limits for the patient's age. No abnormal parenchymal densities are seen. No evidence of intracranial hemorrhage. No midline shift or mass-effect is seen. No abnormal enhancement is seen. Bone window settings were reviewed which show the visualized mastoid sinuses and paranasal sinuses to appear clear. No acute calvarial abnormality is identified. Impression: 1. Nothing acute is seen on head CT study performed without and with intravenous contrast. Diagnostic code #2 This report was dictated in [place] [employer]
--- NOTE | 2019-12-12 14:58 | CT ---
CT abdomen and pelvis Technique: Multiple axial sections were obtained from above the dome of the diaphragm inferiorly through the pubic symphysis. Intravenous contrast was utilized. No oral contrast has been given. Comparison: Prior CT abdomen and pelvis exam of 11/06/19. Findings: Interstitial change is noted within both lung bases. Most of this appears to represent fibrosis. There is one area being seen within the right lung base having more of a nodular appearance measuring 1.5 cm. This appears similar to previous exam although follow-up will be recommended. Mild artifact is noted from the patient's arms. Liver contains no discrete abnormality. Gallbladder is dilated with numerous calcified small gallstones. Spleen appears within normal limits. Moderate sized hiatal hernia is noted. Adrenal glands contain no discrete nodule. Kidneys show symmetric contrast enhancement without hydronephrosis or mass. Pancreas shows no discrete abnormality. Aorta contains no aneurysm. No retroperitoneal adenopathy or mesenteric abnormalities are seen. Increased stool noted within the rectum compatible with fecal impaction. Diverticuli are seen within portions of the descending colon and sigmoid colon. No inflammatory change of diverticulitis is seen. Appendix felt to be visualized and is normal in size. Bone window settings were reviewed. Scoliosis is noted within the spine. Mild scattered degenerative change within the spine is seen. Impression: 1. Scarring within both lung bases. One area within the right lung base has a more nodular appearance measuring 1.5 cm. This is similar to most recent exam but recommend repeat noncontrast chest CT in 6 months to further evaluate. This would occur in May,. 2. Increase stool within the rectum compatible with fecal impaction. 3. Dilated gallbladder with small calcified gallstones. 4. Other findings as noted above. Nothing acute is otherwise seen. Diagnostic code #9 This report was dictated in [place] [employer]
--- NOTE | 2019-12-12 16:10 | EDM.PDOC ---
ED HPI GENERAL MEDICAL PROBLEM - General Chief Complaint: General Stated Complaint: UNUSUAL BEHAVIOR Time Seen by Provider: 12/12/19 12:27 Source of Information: Reports: Patient History Limitations: Reports: Other (at baseline has cognitive impairment ) - History of Present Illness INITIAL COMMENTS - FREE TEXT/NARRATIVE: 59-year-old female from a [facility] history of schizophrenia lower extremity edema presenting to er because she is not really eating or drinking anything. in addition she has had decreased mobility since Saturday. No fever.? cough. patient unable to give history. no vomiting no reported diarrhea. 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 the patient cannot provide history Onset: Gradual (4) Duration: Getting Worse Associated Symptoms: Denies: Fever/Chills, Shortness of Breath - Related Data Allergies Allergy/AdvReac Type Severity Reaction Status Date / Time No Known Allergies Allergy Verified 11/06/19 09:43 Home Meds: Home Meds Divalproex Sodium [Depakote] 250 mg PO TID 09/06/15 [History] Polyethylene Glycol 3350 [MiraLAX] 1 dose PO ASDIRECTED PRN 09/06/15 [History] Polyvinyl Alcohol/Povidone [Refresh] 1 drop EYEBOTH ASDIRECTED PRN 09/06/15 [ History] fluvoxaMINE [Luvox] 100 mg PO ASDIRECTED 09/06/15 [History] Levothyroxine [Synthroid] 88 mcg PO DAILY 01/27/18 [History] Docusate Sodium/Sennosides [Senna Plus] 1 tab PO BID PRN tablet 11/09/19 [Rx] Past Medical History HEENT History: Reports: None Cardiovascular History: Reports: Hypertension Respiratory History: Reports: None Gastrointestinal History: Reports: None Genitourinary History: Reports: None CAD ENGINEER History: Reports: None Musculoskeletal History: Reports: None Neurological History: Reports: Other (See Below) Other Neuro History: scoliosis 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, Schizophrenia Endocrine/Metabolic History: Reports: Other (See Below) Other Endocrine/Metabolic History: melinda's hypothyroidism Hematologic History: Reports: None Immunologic History: Reports: None Oncologic (Cancer) History: Reports: None Dermatologic History: Reports: Other (See Below) Other Dermatologic History: hirsutism - Infectious Disease History Infectious Disease History: Reports: None - Past Surgical History Head Surgeries/Procedures: Reports: None Cardiovascular Surgical History: Reports: None Female Surgical History: Reports: Other (See Below) Other Female Surgeries/Procedures: Right Oophorectomy '2010 Neurological Surgical History: Reports: None Social & Family History - Family History Family Medical History: Noncontributory - Tobacco Use Smoking Status *Q: Never Smoker - Caffeine Use Caffeine Use: Reports: None ED ROS GENERAL - Review of Systems Review Of Systems: Unable To Obtain Reason Not Obtained: cognitive disability ED EXAM, GENERAL - Physical Exam Exam: See Below Free Text/Narrative:: physical exam limited due to patient's cognitive disability, she appears well, she did not ambulate she was able to bear weight, but did not walk, rectal exam she was not impacted. She has full range of motion in her lower extremities ( noxious stimuli) no midline tenderness to palpation her back. Exam Limited By: Other (cognitive impairment) General Appearance: Alert Nose: Normal Inspection Throat/Mouth: Normal Inspection Head: Atraumatic, Normocephalic Neck: Normal Inspection, Supple Respiratory/Chest: Lungs Clear, Normal Breath Sounds. No: Crackles, Rales, Rhonchi, Wheezing, Stridor Cardiovascular: Normal Peripheral Pulses, No JVD GI/Abdominal: Soft, Non-Tender Rectal (Female) Exam: Normal Rectal Tone. No: Fecal Impaction Back Exam: Normal Inspection Extremities: Other (extensive pedal edema of the lower extremities ) Neurological: Alert, Oriented Psychiatric: Normal Mood Skin Exam: Warm, Dry Course - Vital Signs Last Recorded V/S: Last Vital Signs Temp 96.7 F L 12/12/19 15:37 Pulse 90 12/12/19 15:37 Resp 16 12/12/19 12:18 BP 112/53 L 12/12/19 15:45 Pulse Ox 95 12/12/19 15:37 - Orders/Labs/Meds Orders: Active Orders 24 hr Category Date Time Status CULTURE URINE [RM] Stat Lab 12/12/19 14:05 Received Labs: Laboratory Tests 12/12/19 12/12/19 12/12/19 Range/Units 13:14 13:14 14:05 WBC 5.33 (4.0-11.0) K/uL RBC 4.00 L (4.30-5.90) M/uL Hgb 11.8 L (12.0-16.0) g/dL Hct 36.6 (36.0-46.0) % MCV 91.5 (80.0-98.0) fL MCH 29.5 (27.0-32.0) pg MCHC 32.2 (31.0-37.0) g/dL RDW Std Deviation 56.5 (28.0-62.0) fl RDW Coeff of Jimy 17 H (11.0-15.0) % Plt Count 114 L (150-400) K/uL MPV 10.60 (7.40-12.00) fL Neut % (Auto) 82.1 H (48.0-80.0) % Lymph % (Auto) 9.8 L (16.0-40.0) % [place] % (Auto) 7.7 (0.0-15.0) % Eos % (Auto) 0.4 (0.0-7.0) % Baso % (Auto) 0.0 (0.0-1.5) % Neut # (Auto) 4.4 (1.4-5.7) K/uL Lymph # (Auto) 0.5 L (0.6-2.4) K/uL [place] # (Auto) 0.4 (0.0-0.8) K/uL Eos # (Auto) 0.0 (0.0-0.7) K/uL Baso # (Auto) 0.0 (0.0-0.1) K/uL Nucleated RBC % 0.0 /100WBC Nucleated RBCs # 0 K/uL Sodium 148 H (136-145) mmol/L Potassium 4.9 (3.5-5.1) mmol/L Chloride 107 (98-107) mmol/L Carbon Dioxide 35.9 H (21.0-32.0) mmol/L BUN 26 H (7.0-18.0) mg/dL Creatinine 0.9 (0.6-1.0) mg/dL Est Cr Clr Drug Dosing TNP Estimated GFR (MDRD) > 60.0 ml/min Glucose 75 (74-106) mg/dL Calcium 10.1 (8.5-10.1) mg/dL Total Bilirubin 0.3 (0.2-1.0) mg/dL AST 31 (15-37) IU/L ALT 35 (14-63) IU/L Alkaline Phosphatase 87 (46-116) U/L Total Protein 7.3 (6.4-8.2) g/dL Albumin 2.9 L (3.4-5.0) g/dL Globulin 4.4 H (2.6-4.0) g/dL Albumin/Globulin Ratio 0.7 L (0.9-1.6) Lipase 477 H (73-393) U/L Urine Color YELLOW Urine Appearance CLEAR Urine pH 6.5 (5.0-8.0) Ur Specific [place] 1.015 (1.001-1.035) Urine Protein NEGATIVE (NEGATIVE) mg/dL Urine Glucose (UA) NEGATIVE (NEGATIVE) mg/dL Urine Ketones NEGATIVE (NEGATIVE) mg/dL Urine Occult Blood NEGATIVE (NEGATIVE) Urine Nitrite NEGATIVE (NEGATIVE) Urine Bilirubin NEGATIVE (NEGATIVE) Urine Urobilinogen 0.2 (<2.0) EU/dL Ur Leukocyte Esterase NEGATIVE (NEGATIVE) Meds: Medications Discontinued Medications Generic Name Dose Route Start Last Admin Trade Name Freq PRN Reason Stop Dose Admin Sodium Chloride 1,000 mls @ 999 mls/hr 12/12/19 12:47 12/12/19 14:39 Normal Saline IV 12/12/19 13:47 999 mls/hr BOLUS ONE Administration Iopamidol 70 ml 12/12/19 14:33 12/12/19 14:35 Isovue Multipack-370 (76%) IVPUSH 12/12/19 14:34 70 ml ONETIME STA Administration - Re-Assessments/Exams Free Text/Narrative Re-Assessment/Exam: 12/12/19 16:25 patient came for decreased by mouth intake and decreased mobility. she is afebrile no leukocytosis UA is negative for infection and chest x-ray is negative for pneumonia. on exam she is able to bear weight but is not walking, unclear etiology, her head CT was negative, she ranges her lower extremities to noxious stimuli. patient has quite prominent lower extremity edema. likely require admit for further workup and treatment as she is at risk for dehydration. patient discussed with internal medicine. 12/12/19 17:34 Departure - Departure Time of Disposition: 17:33 Disposition: Admitted As Inpatient 65 Condition: Good Clinical Impression: Lower extremity edema - Discharge Information Referrals: Tresa Barnes DO [Primary Care Provider] - Forms: ED Department Discharge Sepsis Event Note - Evaluation Sepsis Screening Result: No Definite Risk - Focused Exam Vital Signs: Vital Signs Temp Pulse Resp BP Pulse Ox 12/12/19 15:45 112/53 L 12/12/19 15:37 96.7 F L 90 82/40 L 95 12/12/19 12:18 97.6 F 95 16 107/53 L 95 Date Exam was Performed: 12/12/19 Time Exam was Performed: 17:33 - My Orders Last 24 Hours: My Active Orders 12/12/19 14:05 CULTURE URINE [RM] Stat - Assessment/Plan Last 24 Hours: My Active Orders 12/12/19 14:05 CULTURE URINE [RM] Stat
[2019-12-12] MEDS ORDERED: Lactulose Soln 10 GM/15 ML ML 473 ML Bottle PO ONE (18:01)
--- NOTE | 2019-12-12 18:06 | PCM.HP.2 ---
H&P History of Present Illness - General Date of Service: 12/12/19 Admit Problem/Dx: Admission Diagnosis/Problem Admission Diagnosis/Problem Edema - History of Present Illness Initial Comments - Free Text/Narative: 59 y/o female with history of schizophrenia presenting with caregiver form [employer] [facility]. Per caregiver, she has not been eating for the past couple of days. In addition, has not had a bowel movement in a few days as well. Caregiver states that prior to this she was ambulating on her own and would communicate with people,however, she has noticed that she has not been mobile and speaking like usual. No vomiting. In the ER, CT abdomen showed fecal impaction and dilated gallbladder. No leukocytosis or fever. She was given a bolus of NS. - Related Data Allergies/Adverse Reactions: Allergies Allergy/AdvReac Type Severity Reaction Status Date / Time No Known Allergies Allergy Verified 11/06/19 09:43 Home Medications: Home Meds Divalproex Sodium [Depakote] 250 mg PO TID 09/06/15 [History] Polyethylene Glycol 3350 [MiraLAX] 1 dose PO ASDIRECTED PRN 09/06/15 [History] Polyvinyl Alcohol/Povidone [Refresh] 1 drop EYEBOTH ASDIRECTED PRN 09/06/15 [ History] fluvoxaMINE [Luvox] 100 mg PO ASDIRECTED 09/06/15 [History] Levothyroxine [Synthroid] 88 mcg PO DAILY 01/27/18 [History] Docusate Sodium/Sennosides [Senna Plus] 1 tab PO BID PRN tablet 11/09/19 [Rx] Past Medical History HEENT History: Reports: None Cardiovascular History: Reports: Hypertension Respiratory History: Reports: None Gastrointestinal History: Reports: None Genitourinary History: Reports: None [employer]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 Musculoskeletal History: Reports: None Neurological History: Reports: Other (See Below) Other Neuro History: scoliosis 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, Schizophrenia Endocrine/Metabolic History: Reports: Other (See Below) Other Endocrine/Metabolic History: melinda's hypothyroidism Hematologic History: Reports: None Immunologic History: Reports: None Oncologic (Cancer) History: Reports: None Dermatologic History: Reports: Other (See Below) Other Dermatologic History: hirsutism - Infectious Disease History Infectious Disease History: Reports: None - Past Surgical History Head Surgeries/Procedures: Reports: None Cardiovascular Surgical History: Reports: None Female Surgical History: Reports: Other (See Below) Other Female Surgeries/Procedures: Right Oophorectomy '2010 Neurological Surgical History: Reports: None Social & Family History - Family History Family Medical History: Noncontributory - Tobacco Use Smoking Status *Q: Never Smoker - Caffeine Use Caffeine Use: Reports: None H&P Review of Systems - Review of Systems: Review Of Systems: Comprehensive ROS is negative, except as noted in HPI. Exam - Exam Exam: See Below - Vital Signs Vital Signs: Last Vital Signs Temp 35.9 C L 12/12/19 15:37 Pulse 99 12/12/19 17:43 Resp 16 12/12/19 12:18 BP 117/57 L 12/12/19 17:43 Pulse Ox 92 L 12/12/19 17:43 Weight: 56.019 kg - Exam General: Alert, Other (non verbal, not following commands) HEENT: Other (dry oral mucosa) Lungs: Clear to Auscultation. No: Crackles, Wheezing Cardiovascular: Regular Rate, Regular Rhythm GI/Abdominal Exam: No Distention, Other (hypoactive bowel sounds, non tender) Extremities: Other (pittind edema up to knees bilaterally, chronic) Skin: Warm - Patient Data Lab Results Last 24 hrs: Laboratory Results - last 24 hr 12/12/19 12/12/19 12/12/19 Range/Units 13:14 13:14 14:05 WBC 5.33 (4.0-11.0) K/uL RBC 4.00 L (4.30-5.90) M/uL Hgb 11.8 L (12.0-16.0) g/dL Hct 36.6 (36.0-46.0) % MCV 91.5 (80.0-98.0) fL MCH 29.5 (27.0-32.0) pg MCHC 32.2 (31.0-37.0) g/dL RDW Std Deviation 56.5 (28.0-62.0) fl RDW Coeff of Jimy 17 H (11.0-15.0) % Plt Count 114 L (150-400) K/uL MPV 10.60 (7.40-12.00) fL Neut % (Auto) 82.1 H (48.0-80.0) % Lymph % (Auto) 9.8 L (16.0-40.0) % [place] % (Auto) 7.7 (0.0-15.0) % Eos % (Auto) 0.4 (0.0-7.0) % Baso % (Auto) 0.0 (0.0-1.5) % Neut # (Auto) 4.4 (1.4-5.7) K/uL Lymph # (Auto) 0.5 L (0.6-2.4) K/uL [place] # (Auto) 0.4 (0.0-0.8) K/uL Eos # (Auto) 0.0 (0.0-0.7) K/uL Baso # (Auto) 0.0 (0.0-0.1) K/uL Nucleated RBC % 0.0 /100WBC Nucleated RBCs # 0 K/uL Sodium 148 H (136-145) mmol/L Potassium 4.9 (3.5-5.1) mmol/L Chloride 107 (98-107) mmol/L Carbon Dioxide 35.9 H (21.0-32.0) mmol/L BUN 26 H (7.0-18.0) mg/dL Creatinine 0.9 (0.6-1.0) mg/dL Est Cr Clr Drug Dosing TNP Estimated GFR (MDRD) > 60.0 ml/min Glucose 75 (74-106) mg/dL Calcium 10.1 (8.5-10.1) mg/dL Total Bilirubin 0.3 (0.2-1.0) mg/dL AST 31 (15-37) IU/L ALT 35 (14-63) IU/L Alkaline Phosphatase 87 (46-116) U/L Total Protein 7.3 (6.4-8.2) g/dL Albumin 2.9 L (3.4-5.0) g/dL Globulin 4.4 H (2.6-4.0) g/dL Albumin/Globulin Ratio 0.7 L (0.9-1.6) Lipase 477 H (73-393) U/L Urine Color YELLOW Urine Appearance CLEAR Urine pH 6.5 (5.0-8.0) Ur Specific [place] 1.015 (1.001-1.035) Urine Protein NEGATIVE (NEGATIVE) mg/dL Urine Glucose (UA) NEGATIVE (NEGATIVE) mg/dL Urine Ketones NEGATIVE (NEGATIVE) mg/dL Urine Occult Blood NEGATIVE (NEGATIVE) Urine Nitrite NEGATIVE (NEGATIVE) Urine Bilirubin NEGATIVE (NEGATIVE) Urine Urobilinogen 0.2 (<2.0) EU/dL Ur Leukocyte Esterase NEGATIVE (NEGATIVE) Result Diagrams: 12/12/19 13:14 12/12/19 13:14 Dio Results Last 24 hrs: Microbiology 12/12/19 13:45 Influenza Type A Antigen Screen - Final Nasopharyngeal Swab NEGATIVE INFLUENZA A VIRUS AG REFERENCE RANGE: NEGATIVE Influenza Type B Antigen Screen - Final NEGATIVE INFLUENZA B VIRUS AG REFERENCE RANGE: NEGATIVE Sepsis Event Note - Evaluation Sepsis Screening Result: No Definite Risk - Focused Exam Vital Signs: Vital Signs Temp Pulse Resp BP Pulse Ox 12/12/19 17:43 99 117/57 L 92 L 12/12/19 15:45 112/53 L 12/12/19 15:37 35.9 C L 90 82/40 L 95 12/12/19 12:18 36.4 C 95 16 107/53 L 95 Date Exam was Performed: 12/12/19 Time Exam was Performed: 18:15 Problem List Initiated/Reviewed/Updated: Yes Orders Last 24hrs: Active Orders 24 hr Category Date Time Status Admission Status [Patient Status] [ADT] Stat ADT 12/12/19 17:43 Active Intake and Output [RC] QSHIFT Care 12/12/19 17:55 Active Oxygen Therapy [RC] PRN Care 12/12/19 17:53 Active Up With Assistance [RC] ASDIRECTED Care 12/12/19 17:54 Active VTE/DVT Education [RC] PER UNIT ROUTINE Care 12/12/19 17:54 Active Vital Signs [RC] Q4H Care 12/12/19 17:53 Active Nothing per Oral Now Diet [DIET] Diet 12/12/19 Breakfast Active CBC WITH AUTO DIFF [HEME] AM Lab 12/13/19 05:11 Ordered CBC WITH AUTO DIFF [HEME] AM Lab 12/14/19 05:11 Ordered CBC WITH AUTO DIFF [HEME] AM Lab 12/15/19 05:11 Ordered COMPREHENSIVE METABOLIC PN,CMP [CHEM] AM Lab 12/13/19 05:11 Ordered COMPREHENSIVE METABOLIC PN,CMP [CHEM] AM Lab 12/14/19 05:11 Ordered COMPREHENSIVE METABOLIC PN,CMP [CHEM] AM Lab 12/15/19 05:11 Ordered CULTURE URINE [RM] Stat Lab 12/12/19 14:05 Received Enoxaparin [Lovenox] Med 12/12/19 18:00 Active 40 mg SUBCUT Q24H Lactated Ringers [Ringers, Lactated] 1,000 ml Med 12/12/19 18:00 Active IV ASDIRECTED Lactulose [Chronulac] Med 12/12/19 18:01 Once 20 gm PO ONETIME ONE Lactulose [Chronulac] Med 12/12/19 22:00 Ordered 20 gm PO TID Resuscitation Status Routine Resus Stat 12/12/19 17:53 Ordered Medication Orders Enoxaparin Sodium (Lovenox) 40 mg SUBCUT Q24H DEQUAN Lactated Ringer's (Ringers, Lactated) 1,000 mls @ 125 mls/hr IV ASDIRECTED DEQUAN Lactulose (Chronulac) 20 gm PO TID DEQUAN Lactulose (Chronulac) 20 gm PO ONETIME ONE Stop: 12/12/19 18:02 Assessment/Plan Comment:: A: 1. Acute kidney injury 2. Fecal impaction 3. Elevated lipase 4. Lower extremity edema 5. PMH schizophrenia P: 1. Will keep NPO except medications and sips of water. Will give Lactulose 20 mg PO TID for fecal impaction. Start maintenance fluids LR 125 ml/hr. Will resume home meds. Dispo:1-2
[2019-12-12] MEDS: Enoxaparin 40 MG/0.4 ML Syringe SUBCUT SCH (18:37)
[2019-12-12] MEDS: Lactated Ringers 1,000 ML IV SCH (18:37)
[2019-12-12] MEDS ORDERED: Lactulose Soln 10 GM/15 ML ML 473 ML Bottle PO SCH (22:00)
[2019-12-12] MEDS: Lactulose Soln 10 GM/15 ML 15 ML UD Cup PO SCH (22:22)
[2019-12-12] MEDS: Divalproex Sodium Delayed-Release 250 MG Tab.CR PO SCH (22:22)
[2019-12-13] MEDS: Lactated Ringers 1,000 ML IV SCH (02:37)
[2019-12-13] MEDS: Divalproex Sodium Delayed-Release 250 MG Tab.CR PO SCH ×3 (05:28→21:03)
[2019-12-13] MEDS: Lactulose Soln 10 GM/15 ML 15 ML UD Cup PO SCH (05:28)
[2019-12-13] MEDS: Levothyroxine 88 MCG Tab PO SCH (06:11)
[2019-12-13 06:45] LABS: BLOOD UREA NITROGEN,BUN 22 mg/dL (7.0-18.0); CARBON DIOXIDE,CO2 32.2 mmol/L (21.0-32.0); CHLORIDE,CL 111 mmol/L (98-107); GLUCOSE RANDOM 66 mg/dL (74-106); POTASSIUM,K 4.8 mmol/L (3.5-5.1); SODIUM,NA 149 mmol/L (136-145)
[2019-12-13] MEDS ORDERED: 50% Dextrose in Water 50 ML Syringe IVPUSH ONE ×2 (08:05→12:05)
[2019-12-13] MEDS ORDERED: Dextrose 5%-0.9% NaCl 1,000 ML IV SCH (08:15)
[2019-12-13] MEDS ORDERED: Dextrose 5%-0.45% NaCl 1,000 ML IV SCH (08:45)
--- NOTE | 2019-12-13 13:36 | PCM.PN ---
- General Info Date of Service: 12/13/19 Admission Dx/Problem (Free Text): Admission Diagnosis/Problem Admission Diagnosis/Problem Edema - Review of Systems Systems Review Comment:: unable to obtain - Patient Data Vitals - Most Recent: Last Vital Signs Temp 35.8 C L 12/13/19 11:22 Pulse 88 12/13/19 11:22 Resp 16 12/13/19 11:22 BP 127/62 12/13/19 07:54 Pulse Ox 94 L 12/13/19 11:22 Weight - Most Recent: 58.5 kg I&O - Last 24 Hours: Intake & Output 12/12/19 12/13/19 12/13/19 22:59 06:59 14:59 Intake Total 2135 Output Total 205 Balance 1930 Lab Results Last 24 Hours: Laboratory Results - last 24 hr 12/12/19 12/12/19 12/12/19 Range/Units 13:14 13:14 13:14 WBC (4.0-11.0) K/uL RBC (4.30-5.90) M/uL Hgb (12.0-16.0) g/dL Hct (36.0-46.0) % MCV (80.0-98.0) fL MCH (27.0-32.0) pg MCHC (31.0-37.0) g/dL RDW Std Deviation (28.0-62.0) fl RDW Coeff of Jimy (11.0-15.0) % Plt Count (150-400) K/uL MPV (7.40-12.00) fL Neut % (Auto) (48.0-80.0) % Lymph % (Auto) (16.0-40.0) % [place] % (Auto) (0.0-15.0) % Eos % (Auto) (0.0-7.0) % Baso % (Auto) (0.0-1.5) % Neut # (Auto) (1.4-5.7) K/uL Lymph # (Auto) (0.6-2.4) K/uL [place] # (Auto) (0.0-0.8) K/uL Eos # (Auto) (0.0-0.7) K/uL Baso # (Auto) (0.0-0.1) K/uL Nucleated RBC % /100WBC Nucleated RBCs # K/uL Sodium 148 H (136-145) mmol/L Potassium 4.9 (3.5-5.1) mmol/L Chloride 107 (98-107) mmol/L Carbon Dioxide 35.9 H (21.0-32.0) mmol/L BUN 26 H (7.0-18.0) mg/dL Creatinine 0.9 (0.6-1.0) mg/dL Est Cr Clr Drug Dosing TNP Estimated GFR (MDRD) > 60.0 ml/min Glucose 75 (74-106) mg/dL POC Glucose (60-110) mg/dL Calcium 10.1 (8.5-10.1) mg/dL Total Bilirubin 0.3 (0.2-1.0) mg/dL AST 31 (15-37) IU/L ALT 35 (14-63) IU/L Alkaline Phosphatase 87 (46-116) U/L B-Natriuretic Peptide 83 (<100) PG/ML Total Protein 7.3 (6.4-8.2) g/dL Albumin 2.9 L (3.4-5.0) g/dL Globulin 4.4 H (2.6-4.0) g/dL Albumin/Globulin Ratio 0.7 L (0.9-1.6) Lipase 477 H (73-393) U/L Free T4 (0.76-1.46) ng/dL TSH 3rd Generation 0.12 L (0.36-3.74) uIU/mL Urine Color Urine Appearance Urine pH (5.0-8.0) Ur Specific [place] (1.001-1.035) Urine Protein (NEGATIVE) mg/dL Urine Glucose (UA) (NEGATIVE) mg/dL Urine Ketones (NEGATIVE) mg/dL Urine Occult Blood (NEGATIVE) Urine Nitrite (NEGATIVE) Urine Bilirubin (NEGATIVE) Urine Urobilinogen (<2.0) EU/dL Ur Leukocyte Esterase (NEGATIVE) 12/12/19 12/12/19 12/13/19 Range/Units 13:35 14:05 06:05 WBC 3.90 L (4.0-11.0) K/uL RBC 3.61 L (4.30-5.90) M/uL Hgb 10.5 L (12.0-16.0) g/dL Hct 33.7 L (36.0-46.0) % MCV 93.4 (80.0-98.0) fL MCH 29.1 (27.0-32.0) pg MCHC 31.2 (31.0-37.0) g/dL RDW Std Deviation 59.4 (28.0-62.0) fl RDW Coeff of Jimy 17 H (11.0-15.0) % Plt Count 107 L (150-400) K/uL MPV 10.60 (7.40-12.00) fL Neut % (Auto) 65.4 (48.0-80.0) % Lymph % (Auto) 19.7 (16.0-40.0) % [place] % (Auto) 14.1 (0.0-15.0) % Eos % (Auto) 0.8 (0.0-7.0) % Baso % (Auto) 0.0 (0.0-1.5) % Neut # (Auto) 2.6 (1.4-5.7) K/uL Lymph # (Auto) 0.8 (0.6-2.4) K/uL [place] # (Auto) 0.6 (0.0-0.8) K/uL Eos # (Auto) 0.0 (0.0-0.7) K/uL Baso # (Auto) 0.0 (0.0-0.1) K/uL Nucleated RBC % 0.0 /100WBC Nucleated RBCs # 0 K/uL Sodium (136-145) mmol/L Potassium (3.5-5.1) mmol/L Chloride (98-107) mmol/L Carbon Dioxide (21.0-32.0) mmol/L BUN (7.0-18.0) mg/dL Creatinine (0.6-1.0) mg/dL Est Cr Clr Drug Dosing Estimated GFR (MDRD) ml/min Glucose (74-106) mg/dL POC Glucose (60-110) mg/dL Calcium (8.5-10.1) mg/dL Total Bilirubin (0.2-1.0) mg/dL AST (15-37) IU/L ALT (14-63) IU/L Alkaline Phosphatase (46-116) U/L B-Natriuretic Peptide (<100) PG/ML Total Protein (6.4-8.2) g/dL Albumin (3.4-5.0) g/dL Globulin (2.6-4.0) g/dL Albumin/Globulin Ratio (0.9-1.6) Lipase (73-393) U/L Free T4 1.64 H (0.76-1.46) ng/dL TSH 3rd Generation (0.36-3.74) uIU/mL Urine Color YELLOW Urine Appearance CLEAR Urine pH 6.5 (5.0-8.0) Ur Specific [place] 1.015 (1.001-1.035) Urine Protein NEGATIVE (NEGATIVE) mg/dL Urine Glucose (UA) NEGATIVE (NEGATIVE) mg/dL Urine Ketones NEGATIVE (NEGATIVE) mg/dL Urine Occult Blood NEGATIVE (NEGATIVE) Urine Nitrite NEGATIVE (NEGATIVE) Urine Bilirubin NEGATIVE (NEGATIVE) Urine Urobilinogen 0.2 (<2.0) EU/dL Ur Leukocyte Esterase NEGATIVE (NEGATIVE) 12/13/19 12/13/19 12/13/19 Range/Units 06:05 06:05 07:58 WBC (4.0-11.0) K/uL RBC (4.30-5.90) M/uL Hgb (12.0-16.0) g/dL Hct (36.0-46.0) % MCV (80.0-98.0) fL MCH (27.0-32.0) pg MCHC (31.0-37.0) g/dL RDW Std Deviation (28.0-62.0) fl RDW Coeff of Jimy (11.0-15.0) % Plt Count (150-400) K/uL MPV (7.40-12.00) fL Neut % (Auto) (48.0-80.0) % Lymph % (Auto) (16.0-40.0) % [place] % (Auto) (0.0-15.0) % Eos % (Auto) (0.0-7.0) % Baso % (Auto) (0.0-1.5) % Neut # (Auto) (1.4-5.7) K/uL Lymph # (Auto) (0.6-2.4) K/uL [place] # (Auto) (0.0-0.8) K/uL Eos # (Auto) (0.0-0.7) K/uL Baso # (Auto) (0.0-0.1) K/uL Nucleated RBC % /100WBC Nucleated RBCs # K/uL Sodium 149 H (136-145) mmol/L Potassium 4.8 (3.5-5.1) mmol/L Chloride 111 H (98-107) mmol/L Carbon Dioxide 32.2 H (21.0-32.0) mmol/L BUN 22 H (7.0-18.0) mg/dL Creatinine 0.9 (0.6-1.0) mg/dL Est Cr Clr Drug Dosing 47.75 Estimated GFR (MDRD) > 60.0 ml/min Glucose 66 L (74-106) mg/dL POC Glucose 60 (60-110) mg/dL Calcium 9.3 (8.5-10.1) mg/dL Total Bilirubin 0.3 (0.2-1.0) mg/dL AST 27 (15-37) IU/L ALT 30 (14-63) IU/L Alkaline Phosphatase 72 (46-116) U/L B-Natriuretic Peptide (<100) PG/ML Total Protein 6.0 L (6.4-8.2) g/dL Albumin 2.3 L (3.4-5.0) g/dL Globulin 3.7 (2.6-4.0) g/dL Albumin/Globulin Ratio 0.6 L (0.9-1.6) Lipase 355 (73-393) U/L Free T4 (0.76-1.46) ng/dL TSH 3rd Generation (0.36-3.74) uIU/mL Urine Color Urine Appearance Urine pH (5.0-8.0) Ur Specific [place] (1.001-1.035) Urine Protein (NEGATIVE) mg/dL Urine Glucose (UA) (NEGATIVE) mg/dL Urine Ketones (NEGATIVE) mg/dL Urine Occult Blood (NEGATIVE) Urine Nitrite (NEGATIVE) Urine Bilirubin (NEGATIVE) Urine Urobilinogen (<2.0) EU/dL Ur Leukocyte Esterase (NEGATIVE) 12/13/19 12/13/19 Range/Units 09:30 11:16 WBC (4.0-11.0) K/uL RBC (4.30-5.90) M/uL Hgb (12.0-16.0) g/dL Hct (36.0-46.0) % MCV (80.0-98.0) fL MCH (27.0-32.0) pg MCHC (31.0-37.0) g/dL RDW Std Deviation (28.0-62.0) fl RDW Coeff of Jimy (11.0-15.0) % Plt Count (150-400) K/uL MPV (7.40-12.00) fL Neut % (Auto) (48.0-80.0) % Lymph % (Auto) (16.0-40.0) % [place] % (Auto) (0.0-15.0) % Eos % (Auto) (0.0-7.0) % Baso % (Auto) (0.0-1.5) % Neut # (Auto) (1.4-5.7) K/uL Lymph # (Auto) (0.6-2.4) K/uL [place] # (Auto) (0.0-0.8) K/uL Eos # (Auto) (0.0-0.7) K/uL Baso # (Auto) (0.0-0.1) K/uL Nucleated RBC % /100WBC Nucleated RBCs # K/uL Sodium (136-145) mmol/L Potassium (3.5-5.1) mmol/L Chloride (98-107) mmol/L Carbon Dioxide (21.0-32.0) mmol/L BUN (7.0-18.0) mg/dL Creatinine (0.6-1.0) mg/dL Est Cr Clr Drug Dosing Estimated GFR (MDRD) ml/min Glucose (74-106) mg/dL POC Glucose 118 H 94 (60-110) mg/dL Calcium (8.5-10.1) mg/dL Total Bilirubin (0.2-1.0) mg/dL AST (15-37) IU/L ALT (14-63) IU/L Alkaline Phosphatase (46-116) U/L B-Natriuretic Peptide (<100) PG/ML Total Protein (6.4-8.2) g/dL Albumin (3.4-5.0) g/dL Globulin (2.6-4.0) g/dL Albumin/Globulin Ratio (0.9-1.6) Lipase (73-393) U/L Free T4 (0.76-1.46) ng/dL TSH 3rd Generation (0.36-3.74) uIU/mL Urine Color Urine Appearance Urine pH (5.0-8.0) Ur Specific [place] (1.001-1.035) Urine Protein (NEGATIVE) mg/dL Urine Glucose (UA) (NEGATIVE) mg/dL Urine Ketones (NEGATIVE) mg/dL Urine Occult Blood (NEGATIVE) Urine Nitrite (NEGATIVE) Urine Bilirubin (NEGATIVE) Urine Urobilinogen (<2.0) EU/dL Ur Leukocyte Esterase (NEGATIVE) Dio Results Last 24 Hours: Microbiology 12/12/19 13:45 Influenza Type A Antigen Screen - Final Nasopharyngeal Swab NEGATIVE INFLUENZA A VIRUS AG REFERENCE RANGE: NEGATIVE Influenza Type B Antigen Screen - Final NEGATIVE INFLUENZA B VIRUS AG REFERENCE RANGE: NEGATIVE Med Orders - Current: Current Medications Divalproex Sodium (Divalproex Sodium) 250 mg PO TID [facility] Last Admin: 12/13/19 05:28 Dose: 250 mg Enoxaparin Sodium (Lovenox) 40 mg SUBCUT Q24H [facility] Last Admin: 12/12/19 18:37 Dose: 40 mg Lactated Ringer's (Ringers, Lactated) 1,000 mls @ 125 mls/hr IV ASDIRECTED [facility] Last Admin: 12/13/19 02:37 Dose: 125 mls/hr Dextrose/Sodium Chloride (Dextrose 5%-1/2 Ns) 1,000 mls @ 125 mls/hr IV ASDIRECTED [facility] Last Admin: 12/13/19 09:36 Dose: 125 mls/hr Lactulose (Chronulac) 20 gm PO TID [facility] Last Admin: 12/13/19 05:28 Dose: 20 gm Levothyroxine Sodium (Synthroid) 88 mcg PO DAILY@0700 [facility] Last Admin: 12/13/19 06:11 Dose: 88 mcg Discontinued Medications Dextrose/Water (Dextrose 50% In Water) 50 ml IVPUSH ONETIME ONE Stop: 12/13/19 08:06 Last Admin: 12/13/19 08:28 Dose: 50 ml Dextrose/Water (Dextrose 50% In Water) 50 ml IVPUSH ONETIME ONE Stop: 12/13/19 12:06 Last Admin: 12/13/19 12:18 Dose: 50 ml Sodium Chloride (Normal Saline) 1,000 mls @ 999 mls/hr IV BOLUS ONE Stop: 12/12/19 13:47 Last Admin: 12/12/19 14:39 Dose: 999 mls/hr Dextrose/Sodium Chloride (Dextrose 5%-Normal Saline) 1,000 mls @ 125 mls/hr IV ASDIRECTED [facility] Iopamidol (Isovue Multipack-370 (76%)) 70 ml IVPUSH ONETIME STA Stop: 12/12/19 14:34 Last Admin: 12/12/19 14:35 Dose: 70 ml Lactulose (Chronulac) 20 gm PO TID [facility] Lactulose (Chronulac) 20 gm PO ONETIME ONE Stop: 12/12/19 18:02 Last Admin: 12/12/19 20:08 Dose: Not Given - Exam Quality Assessment: Supplemental Oxygen General: No Acute Distress. No: Alert, Oriented Lungs: Clear to Auscultation, Normal Respiratory Effort Cardiovascular: Regular Rate, Regular Rhythm GI/Abdominal Exam: Normal Bowel Sounds, Soft, Non-Tender Skin: Warm, Dry Sepsis Event Note - Evaluation Sepsis Screening Result: No Definite Risk - Focused Exam Vital Signs: Vital Signs Temp Pulse Resp BP Pulse Ox 12/13/19 11:22 35.8 C L 88 16 94 L 12/13/19 07:54 36.5 C 89 20 127/62 95 12/13/19 04:24 36.2 C 100 20 129/69 97 Date Exam was Performed: 12/13/19 Time Exam was Performed: 13:23 - Problem List Review Problem List Initiated/Reviewed/Updated: Yes - My Orders Last 24 Hours: My Active Orders 12/13/19 08:45 Dextrose 5%-0.45% NaCl [Dextrose 5%-1/2 NS] 1,000 ml IV ASDIRECTED 12/13/19 18:00 Accu Check [Blood Glucose Check, Bedside] [RC] Q6HR - Plan Plan:: A/P: 59 y/o F admitted for Fecal impaction, generalized weakness Had a large bowel movement today, lipase normalized, Will start on clears, advance if able to tolerate cont IV fluids with dextrose as sugars are on lower side Q6 accu checks Will cont bowel regimen Will get physical therapy on board Resume home meds Possible elisabet sofie
[2019-12-13] MEDS ORDERED: Polyethylene Glycol 3350 Powder 17 GM Packet PO SCH (13:45)
[2019-12-13] MEDS: fluvoxaMINE 50 MG Tab PO SCH (14:36)
[2019-12-13] MEDS: Enoxaparin 40 MG/0.4 ML Syringe SUBCUT SCH (18:16)
[2019-12-13] MEDS ORDERED: fluvoxaMINE 50 MG Tab PO SCH (20:00)
[2019-12-13] MEDS: risperiDONE 1 MG Tab PO SCH (21:03)
[2019-12-14] MEDS ORDERED: Dextrose 5%-0.45% NaCl 1,000 ML IV SCH (01:00)
[2019-12-14] MEDS: risperiDONE 1 MG Tab PO SCH ×2 (05:16→14:02)
[2019-12-14] MEDS: Divalproex Sodium Delayed-Release 250 MG Tab.CR PO SCH ×2 (05:16→14:03)
[2019-12-14] MEDS: Levothyroxine 88 MCG Tab PO SCH ×3 (06:38→11:52)
[2019-12-14 06:48] LABS: BLOOD UREA NITROGEN,BUN 15 mg/dL (7.0-18.0); CARBON DIOXIDE,CO2 30.6 mmol/L (21.0-32.0); CHLORIDE,CL 110 mmol/L (98-107); GLUCOSE RANDOM 114 mg/dL (74-106); POTASSIUM,K 3.8 mmol/L (3.5-5.1); SODIUM,NA 146 mmol/L (136-145)
[2019-12-14 08:45] VITALS: BP 124/62; PULSE 75
[2019-12-14] MEDS ORDERED: Acetaminophen 325 MG Tab PO PRN (09:54)
[2019-12-14] MEDS: fluvoxaMINE 50 MG Tab PO SCH ×2 (11:51→14:01)
--- NOTE | 2019-12-14 13:41 | PCM.DCSUM1 ---
Discharge Summary - Hospital Course Brief History: 59 y/o female with history of schizophrenia presenting with caregiver form [facility] [place]. Per caregiver, she has not been eating for the past couple of days. In addition, has not had a bowel movement in a few days as well. Caregiver states that prior to this she was ambulating on her own and would communicate with people,however, she has noticed that she has not been mobile and speaking like usual. No vomiting. In the ER, CT abdomen showed fecal impaction and dilated gallbladder. No leukocytosis or fever. She was given a bolus of NS. - Discharge Data Discharge Date: 12/14/19 Discharge Disposition: DC/Tfer to [facility] [place] [id number] Condition: Good - Referral to Home Health Primary Care Physician: Tresa Barnes DO - Patient Summary/Data Consults: Consultations 12/14/19 09:52 Consult to Physical Therapy [PT Evaluation and Treatment] [CONS] Routine - Patient Instructions Diet: Usual Diet as Tolerated, Drink 8-10+ Glasses/Day Activity: As Tolerated Showering/Bathing: May Shower Notify Provider of: Fever, Increased Pain, Swelling and Redness, Drainage, Nausea and/or Vomiting - Discharge Plan *PRESCRIPTION DRUG MONITORING PROGRAM REVIEWED*: Not Applicable *COPY OF PRESCRIPTION DRUG MONITORING REPORT IN PATIENT FABRICE: Not Applicable Prescriptions/Med Rec: Docusate Sodium 100 mg PO BID #60 capsule polyethylene glycoL 3350 [MiraLAX] 17 gm PO DAILY PRN #30 packet PRN Reason: Constipation Home Medications: Home Meds Divalproex Sodium [Depakote] 250 mg PO TID 09/06/15 [History] Polyethylene Glycol 3350 [MiraLAX] 8.5 gm PO Q48H 09/06/15 [History] Polyvinyl Alcohol/Povidone [Refresh] 1 drop EYEBOTH ASDIRECTED PRN 09/06/15 [ History] fluvoxaMINE [Luvox] 100 mg PO BID 09/06/15 [History] Levothyroxine [Synthroid] 88 mcg PO DAILY 01/27/18 [History] Furosemide [Lasix] 20 mg PO DAILY 12/12/19 [History] fluvoxaMINE [Luvox] 50 mg PO BEDTIME 12/12/19 [History] risperiDONE [Risperdal] 1 mg PO TID 12/12/19 [History] Docusate Sodium 100 mg PO BID #60 capsule 12/14/19 [Rx] polyethylene glycoL 3350 [MiraLAX] 17 gm PO DAILY PRN #30 packet 12/14/19 [Rx] Oxygen Therapy Mode: Room Air Patient Handouts: Docusate Sodium; Senna tablets or capsules, Fecal Impaction, Polyethylene Glycol powder Referrals: [facility] [Outside] Tresa Barnes DO [Primary Care Provider] - 12/31/19 10:30 am - Discharge Summary/Plan Comment DC Time >30 min.: No Discharge Summary/Plan Comment: Admitting Diagnoses: RENEA Dehydration Fecal impaction Discharge Diagnoses: RENEA- resolved Dehydration- resolved Fecal impaction- resolved Other PMH: Schizophrenia Effie was admitted for RENEA, dehydration and fecal impaction, she was treated with IVFs as well as Lactulose for fecal impaction. Once she started having BMs , condition improved and she started drinking fluids. Lipase elevated, thought to be due to constipation. Today she is doing better, more alert and is much better with [facility] staff are present. They reports her mental status waxes and wanes, she is talkative one day and then not the next. Staff here this morning, and feel she is at baseline and feel comfortable taking her home. We will order Colace 100 mg BID scheduled with Miralax PRN for constipation. Encouraged to push more liquids and increase activity as possible to minimize constipation. Return to the ED or clinic if concerns should arise. - Patient Data Vitals - Most Recent: Last Vital Signs Temp 96.5 F L 12/14/19 08:00 Pulse 75 12/14/19 08:00 Resp 16 12/14/19 08:00 BP 124/62 12/14/19 08:00 Pulse Ox 91 L 12/14/19 08:45 Weight - Most Recent: 58.5 kg I&O - Last 24 hours: Intake & Output 12/13/19 12/14/19 12/14/19 22:59 06:59 14:59 Intake Total 1311 460 Balance 1311 460 Lab Results - Last 24 hrs: Laboratory Results - last 24 hr 12/13/19 12/14/19 12/14/19 Range/Units 19:01 00:15 05:50 WBC 5.92 (4.0-11.0) K/uL RBC 3.40 L (4.30-5.90) M/uL Hgb 10.0 L (12.0-16.0) g/dL Hct 31.8 L (36.0-46.0) % MCV 93.5 (80.0-98.0) fL MCH 29.4 (27.0-32.0) pg MCHC 31.4 (31.0-37.0) g/dL RDW Std Deviation 58.9 (28.0-62.0) fl RDW Coeff of Jimy 17 H (11.0-15.0) % Plt Count 95 L (150-400) K/uL MPV 10.80 (7.40-12.00) fL Neut % (Auto) 73.1 (48.0-80.0) % Lymph % (Auto) 13.9 L (16.0-40.0) % [place] % (Auto) 12.7 (0.0-15.0) % Eos % (Auto) 0.3 (0.0-7.0) % Baso % (Auto) 0.0 (0.0-1.5) % Neut # (Auto) 4.3 (1.4-5.7) K/uL Lymph # (Auto) 0.8 (0.6-2.4) K/uL [place] # (Auto) 0.8 (0.0-0.8) K/uL Eos # (Auto) 0.0 (0.0-0.7) K/uL Baso # (Auto) 0.0 (0.0-0.1) K/uL Nucleated RBC % 0.0 /100WBC Nucleated RBCs # 0 K/uL Sodium (136-145) mmol/L Potassium (3.5-5.1) mmol/L Chloride (98-107) mmol/L Carbon Dioxide (21.0-32.0) mmol/L BUN (7.0-18.0) mg/dL Creatinine (0.6-1.0) mg/dL Est Cr Clr Drug Dosing mL/min Estimated GFR (MDRD) ml/min Glucose (74-106) mg/dL POC Glucose 98 75 (60-110) mg/dL Calcium (8.5-10.1) mg/dL Total Bilirubin (0.2-1.0) mg/dL AST (15-37) IU/L ALT (14-63) IU/L Alkaline Phosphatase (46-116) U/L Total Protein (6.4-8.2) g/dL Albumin (3.4-5.0) g/dL Globulin (2.6-4.0) g/dL Albumin/Globulin Ratio (0.9-1.6) 12/14/19 12/14/19 12/14/19 Range/Units 05:50 06:18 12:22 WBC (4.0-11.0) K/uL RBC (4.30-5.90) M/uL Hgb (12.0-16.0) g/dL Hct (36.0-46.0) % MCV (80.0-98.0) fL MCH (27.0-32.0) pg MCHC (31.0-37.0) g/dL RDW Std Deviation (28.0-62.0) fl RDW Coeff of Jimy (11.0-15.0) % Plt Count (150-400) K/uL MPV (7.40-12.00) fL Neut % (Auto) (48.0-80.0) % Lymph % (Auto) (16.0-40.0) % [place] % (Auto) (0.0-15.0) % Eos % (Auto) (0.0-7.0) % Baso % (Auto) (0.0-1.5) % Neut # (Auto) (1.4-5.7) K/uL Lymph # (Auto) (0.6-2.4) K/uL [place] # (Auto) (0.0-0.8) K/uL Eos # (Auto) (0.0-0.7) K/uL Baso # (Auto) (0.0-0.1) K/uL Nucleated RBC % /100WBC Nucleated RBCs # K/uL Sodium 146 H (136-145) mmol/L Potassium 3.8 (3.5-5.1) mmol/L Chloride 110 H (98-107) mmol/L Carbon Dioxide 30.6 (21.0-32.0) mmol/L BUN 15 (7.0-18.0) mg/dL Creatinine 0.8 (0.6-1.0) mg/dL Est Cr Clr Drug Dosing 53.71 mL/min Estimated GFR (MDRD) > 60.0 ml/min Glucose 114 H (74-106) mg/dL POC Glucose 112 H 92 (60-110) mg/dL Calcium 8.8 (8.5-10.1) mg/dL Total Bilirubin 0.2 (0.2-1.0) mg/dL AST 26 (15-37) IU/L ALT 24 (14-63) IU/L Alkaline Phosphatase 65 (46-116) U/L Total Protein 5.2 L (6.4-8.2) g/dL Albumin 2.0 L (3.4-5.0) g/dL Globulin 3.2 (2.6-4.0) g/dL Albumin/Globulin Ratio 0.6 L (0.9-1.6) RONY Results - Last 24 hrs: Microbiology 12/12/19 14:05 Urine Culture - Final Urine, Clean Catch MIXED SIN 1,000-10,000 CFU/ML Med Orders - Current: Current Medications Acetaminophen (Tylenol) 650 mg PO Q4H PRN PRN Reason: Pain Divalproex Sodium (Divalproex Sodium) 250 mg PO TID [facility] Last Admin: 12/14/19 05:16 Dose: 250 mg Enoxaparin Sodium (Lovenox) 40 mg SUBCUT Q24H [facility] Last Admin: 12/13/19 18:16 Dose: 40 mg Fluvoxamine Maleate (Fluvoxamine) 100 mg PO BID@0800,1400 [facility] Last Admin: 12/14/19 11:51 Dose: Not Given Fluvoxamine Maleate (Fluvoxamine) 50 mg PO BEDTIME@2000 [facility] Last Admin: 12/13/19 21:01 Dose: 50 mg Levothyroxine Sodium (Synthroid) 88 mcg PO DAILY@0700 [facility] Last Admin: 12/14/19 11:52 Dose: 88 mcg Polyethylene Glycol (Miralax) 8.5 gm PO Q48H [facility] Last Admin: 12/13/19 14:36 Dose: 8.5 gm Risperidone (Risperidal) 1 mg PO TID [facility] Last Admin: 12/14/19 05:16 Dose: 1 mg Discontinued Medications Dextrose/Water (Dextrose 50% In Water) 50 ml IVPUSH ONETIME ONE Stop: 12/13/19 08:06 Last Admin: 12/13/19 08:28 Dose: 50 ml Dextrose/Water (Dextrose 50% In Water) 50 ml IVPUSH ONETIME ONE Stop: 12/13/19 12:06 Last Admin: 12/13/19 12:18 Dose: 50 ml Sodium Chloride (Normal Saline) 1,000 mls @ 999 mls/hr IV BOLUS ONE Stop: 12/12/19 13:47 Last Admin: 12/12/19 14:39 Dose: 999 mls/hr Lactated Ringer's (Ringers, Lactated) 1,000 mls @ 125 mls/hr IV ASDIRECTED [facility] Last Admin: 12/13/19 02:37 Dose: 125 mls/hr Dextrose/Sodium Chloride (Dextrose 5%-Normal Saline) 1,000 mls @ 125 mls/hr IV ASDIRECTED [facility] Dextrose/Sodium Chloride (Dextrose 5%-1/2 Ns) 1,000 mls @ 125 mls/hr IV ASDIRECTED [facility] Last Admin: 12/13/19 09:36 Dose: 125 mls/hr Dextrose/Sodium Chloride (Dextrose 5%-1/2 Ns) 1,000 mls @ 75 mls/hr IV ASDIRECTED [facility] Last Admin: 12/14/19 01:25 Dose: 75 mls/hr Iopamidol (Isovue Multipack-370 (76%)) 70 ml IVPUSH ONETIME STA Stop: 12/12/19 14:34 Last Admin: 12/12/19 14:35 Dose: 70 ml Lactulose (Chronulac) 20 gm PO TID [facility] Lactulose (Chronulac) 20 gm PO ONETIME ONE Stop: 12/12/19 18:02 Last Admin: 12/12/19 20:08 Dose: Not Given Lactulose (Chronulac) 20 gm PO TID [facility] Last Admin: 12/13/19 05:28 Dose: 20 gm
== END 2019-12-14 16:05 | DRG 684 ==
LOC: MW.ED 11:08 → MW.MS 17:43
PROVIDERS: ADMIT Student in an Organized Health Care Education/Training Program; ATTEND Student in an Organized Health Care Education/Training Program
DX: N17.9 Acute kidney failure, unspecified (principal); I10 Essential (primary) hypertension; E03.8 Other specified hypothyroidism; M41.9 Scoliosis, unspecified; E06.3 Autoimmune thyroiditis; L68.0 Hirsutism; Z79.890 Hormone replacement therapy; K56.41 Fecal impaction; R60.0 Localized edema; F20.9 Schizophrenia, unspecified; E86.0 Dehydration; Z79.899 Other long term (current) drug therapy; Z90.721 Acquired absence of ovaries, unilateral; Z99.81 Dependence on supplemental oxygen
CPT/HCPCS: 36415; 70470; 71045; 74177; 81003; 80053; 83690; 83880; 84439; 84443; 85025; 87086; 87804 ×2; 99285; J7030; Q9967; 82962; A9270-GY; J1650; J7042; J7120

== ENCOUNTER 2019-12-26 14:51 | Emergency (ER) | payer MEDICARE, MEDICAID ==
--- NOTE | 2019-12-26 16:51 | CR ---
Chest: Frontal view of the chest was obtained. Comparison: Prior chest x-ray of 12/12/19. Thick density is seen within the right lower lung. Lungs otherwise are clear. Heart size and mediastinum are normal. Scoliosis is noted within the spine. Impression: 1. Thick linear density within the right lung base most likely representing prominent area of atelectasis. 2. Nothing acute is otherwise seen on frontal chest x-ray. Diagnostic code #3 This report was dictated in [place] Standard Time
[2019-12-26 17:12] LABS: CARBON DIOXIDE,CO2 36.9 mmol/L (21.0-32.0); POTASSIUM,K 4.8 mmol/L (3.5-5.1)
[2019-12-26] MEDS ORDERED: Sodium Chloride 0.9% 1,000 ML IV ONE (17:39)
[2019-12-26] MEDS ORDERED: Iopamidol 755 MG/ML 200 ML Multipack Bottle IVPUSH ONE (19:00)
--- NOTE | 2019-12-26 19:03 | EDM.PDOC ---
ED [facility] GENERAL MEDICAL PROBLEM - General Chief Complaint: General Stated Complaint: WEAK/SHAKY Time Seen by Provider: 12/26/19 15:32 - History of Present Illness INITIAL COMMENTS - FREE TEXT/NARRATIVE: HPI 59-year-old female presents for evaluation of cough, shortness breath, and progressive weakness of approximately one week. No apparent fevers, chills, or further symptoms. Decreased PO intake. M/S/F/SocHx notable for: please see HPI; remainder reviewed with patient and in chart. ROS: Negative constitutional, eye, cardiovascular, pulmonary, GI, , MSK, skin , neurologic, psychiatric, endocrine unless noted in the HPI. Exam HR 92, RR 26, BP 131/88, T 36.0C, SaO2 91% on room air. Gen: Pleasant, non-toxic appearing, resting comfortably. HEENT: NC, AT, PEERL, EOMI. Resp: Clear to auscultation bilaterally, normal work of breathing, no accessory muscle usage. Card: Regular rate and rhythm with no murmurs, rubs, or gallops, extremities warm and well perfused. GI: Non-tender to palpation throughout all quadrants, no focal tenderness at McBurney's point, negative Delgado's sign, non-distended, no rebound or guarding. : No suprapubic tenderness to palpation. MSK: No visible deformities, strength and tone without visually appreciable deficit. Skin: Normal color with no visible lesions. Neuro: alert and oriented 3, no facial asymmetry, vision and hearing WNL. Psych: Mood and affect appropriate. Labs / Imaging: CXR: thick linear density within the right lung base most likely representing prominent area of atelectasis. Nothing acute is otherwise seen on frontal chest x-ray. WBC 5.1, HB 11.9, sodium 145, potassium 4.5, creatinine 1.0. CTA Chest: pending. MDM Previous chart, nursing note, labs, imaging, and vitals reviewed. A: 59-year-old female presents for evaluation of cough, shortness breath, and progressive weakness of approximately one week. DDx: pneumonia, pneumonitis, PE, CHF. Evaluation: CBC, BMP, and chest x-ray without explaining etiology, patient developed oxygen requirement in the ED, CT angiography pending at time of patient care transfer to the overnight physician. ED Course: patient requiring 2-3 lpm via NC while in the ED. Impression: cough, hypoxemia. - Related Data Allergies Allergy/AdvReac Type Severity Reaction Status Date / Time No Known Allergies Allergy Verified 12/26/19 15:11 Home Meds: Home Meds Divalproex Sodium [Depakote] 250 mg PO TID 09/06/15 [History] Polyethylene Glycol 3350 [MiraLAX] 8.5 gm PO Q48H 09/06/15 [History] Polyvinyl Alcohol/Povidone [Refresh] 1 drop EYEBOTH ASDIRECTED PRN 09/06/15 [ History] fluvoxaMINE [Luvox] 100 mg PO BID 09/06/15 [History] Levothyroxine [Synthroid] 88 mcg PO DAILY 01/27/18 [History] Furosemide [Lasix] 20 mg PO DAILY 12/12/19 [History] fluvoxaMINE [Luvox] 50 mg PO BEDTIME 12/12/19 [History] risperiDONE [Risperdal] 1 mg PO TID 12/12/19 [History] Docusate Sodium 100 mg PO BID #60 capsule 12/14/19 [Rx] polyethylene glycoL 3350 [MiraLAX] 17 gm PO DAILY PRN #30 packet 12/14/19 [Rx] Past Medical History HEENT History: Reports: None Cardiovascular History: Reports: Hypertension Respiratory History: Reports: None Gastrointestinal History: Reports: Chronic Constipation Genitourinary History: Reports: None BAT BOY/GIRL History: Reports: None Musculoskeletal History: Reports: None Neurological History: Reports: Other (See Below) Other Neuro History: scoliosis 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, Schizophrenia, Other (See Below) Other Psychiatric History: Disoragnized Type Moderate Endocrine/Metabolic History: Reports: Other (See Below) Other Endocrine/Metabolic History: melinda's hypothyroidism Hematologic History: Reports: None Immunologic History: Reports: None Oncologic (Cancer) History: Reports: None Dermatologic History: Reports: Other (See Below) Other Dermatologic History: hirsutism - Infectious Disease History Infectious Disease History: Reports: None - Past Surgical History Head Surgeries/Procedures: Reports: None HEENT Surgical History: Reports: None Cardiovascular Surgical History: Reports: None Respiratory Surgical History: Reports: None GI Surgical History: Reports: None Female Surgical History: Reports: Other (See Below) Other Female Surgeries/Procedures: Right Oophorectomy '2010 Neurological Surgical History: Reports: None Musculoskeletal Surgical History: Reports: None Social & Family History - Family History Family Medical History: Noncontributory - Tobacco Use Smoking Status *Q: Unknown Ever Smoked Second Hand Smoke Exposure: No - Caffeine Use Caffeine Use: Reports: None - Recreational Drug Use Recreational Drug Use: No ED ROS GENERAL - Review of Systems Review Of Systems: See Below ED EXAM, GENERAL - Physical Exam Exam: See Below Course - Vital Signs Last Recorded V/S: Last Vital Signs Temp 36.0 C L 12/26/19 15:08 Pulse 81 12/26/19 18:30 Resp 18 12/26/19 18:30 BP 111/64 12/26/19 18:30 Pulse Ox 96 12/26/19 18:30 - Orders/Labs/Meds Orders: Active Orders 24 hr Category Date Time Status PE Chest [Ang Chest] [CT] Stat Exams 12/26/19 17:39 Ordered Labs: Laboratory Tests 12/26/19 12/26/19 Range/Units 16:44 16:44 WBC 5.81 (4.0-11.0) K/uL RBC 4.01 L (4.30-5.90) M/uL Hgb 11.9 L (12.0-16.0) g/dL Hct 37.4 (36.0-46.0) % MCV 93.3 (80.0-98.0) fL MCH 29.7 (27.0-32.0) pg MCHC 31.8 (31.0-37.0) g/dL RDW Std Deviation 59.2 (28.0-62.0) fl RDW Coeff of Jimy 18 H (11.0-15.0) % Plt Count 139 L (150-400) K/uL MPV 10.10 (7.40-12.00) fL Neut % (Auto) 71.2 (48.0-80.0) % Lymph % (Auto) 13.1 L (16.0-40.0) % [place] % (Auto) 14.6 (0.0-15.0) % Eos % (Auto) 0.9 (0.0-7.0) % Baso % (Auto) 0.2 (0.0-1.5) % Neut # (Auto) 4.1 (1.4-5.7) K/uL Lymph # (Auto) 0.8 (0.6-2.4) K/uL [place] # (Auto) 0.9 H (0.0-0.8) K/uL Eos # (Auto) 0.1 (0.0-0.7) K/uL Baso # (Auto) 0.0 (0.0-0.1) K/uL Nucleated RBC % 0.0 /100WBC Nucleated RBCs # 0 K/uL Sodium 145 (136-145) mmol/L Potassium 4.8 (3.5-5.1) mmol/L Chloride 103 (98-107) mmol/L Carbon Dioxide 36.9 H (21.0-32.0) mmol/L BUN 23 H (7.0-18.0) mg/dL Creatinine 1.0 (0.6-1.0) mg/dL Est Cr Clr Drug Dosing 49.49 mL/min Estimated GFR (MDRD) 56.6 ml/min Glucose 79 (74-106) mg/dL Calcium 10.1 (8.5-10.1) mg/dL Meds: Medications Discontinued Medications Generic Name Dose Route Start Last Admin Trade Name Freq PRN Reason Stop Dose Admin Sodium Chloride 1,000 mls @ 1,000 mls/hr 12/26/19 17:39 12/26/19 18:40 Normal Saline IV 12/26/19 18:38 1,000 mls/hr .Bolus ONE Administration Iopamidol 50 ml 12/26/19 19:00 12/26/19 19:00 Isovue Multipack-370 (76%) IVPUSH 12/26/19 19:01 50 ml ONETIME ONE Administration Departure - Departure Time of Disposition: 19:04 Disposition: Still A Patient 30 Clinical Impression: Cough, Hypoxemia - Discharge Information Referrals: Tresa Barnes DO [Primary Care Provider] - Forms: ED Department Discharge Additional Instructions: You were in seen in the [facility] Emergency Department for evaluation of vaginal bleeding. Please read and follow all of the instructions below. Please follow up with your BAT BOY/GIRL or family medicine physician within 36 to 48 hours for repeat evaluation. During your emergency department evaluation your beta hCG was 443. Please return immediately if you have any of the following: * Worsening bleeding. * Lightheadedness, shortness of breath, dizziness, chest pain. * Worsening pain. * If you are otherwise concerned about your health. When calling for follow-up care, please make the office aware that this follow- up is from your recent emergency room visit. If for any reason you are refused follow-up, please contact the [facility] Emergency Department at and asked to speak to the emergency department charge nurse. Your care today was limited to identifying and treating emergent medical problems only. Many people have subtle differences in their test results that require follow up with their outpatient physician(s) to correctly determine if this represents a normal variation or concerning abnormality with respect to your specific health. The care given to you today was limited to identifying and treating emergent medical problems - you need to request a copy of all of your medical records from today's visit and follow up with your outpatient physician(s) to review both today's visit and your overall health. If you have any new symptoms or if you are at all concerned about your health please return immediately to the emergency department. Prescriptions: If you are uninsured or have financial difficulties with filling your prescription(s), you may consider using a free pharmacy discount service such as [employer]) or [employer] ([employer]). These services allow you to search for a medication on your phone (or computer) and obtain a coupon that usually has a significant discount from the list donald at a pharmacy. Your physician as well as [facility] does not have a financial relationship with either of these services. You may also wish to speak with your physician to determine if lower cost prescriptions are possible. Obtaining primary care: 1. [facility] provides pediatrics (children), family medicine (children, adults, and some obstetrical care), and internal medicine (adults). Further specialty care is also available. Same day appointments are available. They may be contacted at [phone] and are open Saturday through Saturday 8 AM to 5 PM. The [facility] are located at [facility], [address] [place] [address]. 2. [facility] offers family medicine, internal medicine, womens health, and further specialty care. [facility] may be contacted at [phone]. [facility] is located at [address] [place], [address]. 3. If you have health insurance, please also contact your insurer for a list of accepting providers under your policy, you may contact these providers for further health care. Occupational health: Work related injuries may consider following up with [facility], . Occupational health services are located at [address] [place] [address] and are open Saturday through Saturday from 7: 30 am to 5:00 pm. Obstetrical and Gynecological Care: [facility], , Saturday through Saturday 8 AM to 5 PM. [address] [place] [address]. Eyecare: If you have an eye injury you should follow up with your outcomes specialist or with [facility], at [phone] or [phone] , they are located at [address] [place] [address]. [facility] Ar Angel DDS. [address] [facility].[place], [place]. Ph. [phone] Adelso Agnel DDS [place]. [address] [facility] [address], [place], [place]. Ph. Edin Thomas DDS. [address] [place] [address]. Ph. [phone] Juan Crum DDS. [address] [facility] [address] [place], [place]. Ph. [phone] Mario Lindsey DDS PC. [address] [facility] [address] [place], [place]. Ph. [phone] Anshu Cruz DDS. [address] [facility]. Ph. [phone] [facility]. [address] [place], [place]. Ph. [phone] [facility]. [address], [place], [place]. Ph. [phone] [facility] [address] [place] [address] [place] [address]. Ph. [phone] [facility]. [address] [place] [address] [address] JASWINDER Mock. Ph. [phone] [facility]. [address] [place]. Ph. Sepsis Event Note - Evaluation Sepsis Screening Result: No Definite Risk - Focused Exam Vital Signs: Vital Signs Temp Pulse Resp BP Pulse Ox 12/26/19 18:30 81 18 111/64 96 12/26/19 17:30 82 22 H 144/70 H 95 12/26/19 16:30 87 20 138/49 L 95 12/26/19 15:30 86 24 H 120/62 94 L 12/26/19 15:08 36.0 C L 92 26 H 131/88 91 L Date Exam was Performed: 12/26/19 Time Exam was Performed: 19:04 - My Orders Last 24 Hours: My Active Orders 12/26/19 17:39 PE Chest [Ang Chest] [CT] Stat - Assessment/Plan Last 24 Hours: My Active Orders 12/26/19 17:39 PE Chest [Ang Chest] [CT] Stat
--- NOTE | 2019-12-26 19:17 | CT ---
CT chest Technique: Multiple axial sections through the chest were obtained. Intravenous contrast was utilized. Study performed as a pulmonary aneurysm protocol. Comparison: Prior chest x-ray performed earlier on the same day (4:33 PM). Findings: Pulmonary arteries are fairly well-opacified. There are no filling defects being seen to indicate pulmonary embolism. Visualized upper abdominal structures shows no discrete abnormality. Mediastinum and hilar regions show no adenopathy. Area of consolidation is noted within the right lung base. Lungs otherwise are clear. No acute bony abnormality is appreciated on bone window settings. Impression: 1. No findings of pulmonary embolism. 2. Area of consolidation within the right lung base. On CT exam this has more the appearance of a pneumonia rather than atelectasis as noted on chest x-ray. 3. No additional abnormality is appreciated on CT study of the chest. Diagnostic code #3 Study was dictated in [place] Standard Time
[2019-12-26] MEDS ORDERED: Levofloxacin 250 MG Tab PO ONE (19:40)
--- NOTE | 2019-12-26 19:44 | EDM.PDOC ---
ED [facility] GENERAL MEDICAL PROBLEM - General Chief Complaint: General Stated Complaint: WEAK/SHAKY Time Seen by Provider: 12/26/19 15:32 Source of Information: Reports: Other - History of Present Illness INITIAL COMMENTS - FREE TEXT/NARRATIVE: HPI 59-year-old female presents for evaluation of cough, shortness breath, and progressive weakness of approximately one week. No apparent fevers, chills, or further symptoms. Decreased PO intake. M/S/F/SocHx notable for: please see HPI; remainder reviewed with patient and in chart. ROS: Negative constitutional, eye, cardiovascular, pulmonary, GI, , MSK, skin , neurologic, psychiatric, endocrine unless noted in the HPI. Exam HR 92, RR 26, BP 131/88, T 36.0C, SaO2 91% on room air. Gen: Pleasant, non-toxic appearing, resting comfortably. HEENT: NC, AT, PEERL, EOMI. Resp: Clear to auscultation bilaterally, normal work of breathing, no accessory muscle usage. Card: Regular rate and rhythm with no murmurs, rubs, or gallops, extremities warm and well perfused. GI: Non-tender to palpation throughout all quadrants, no focal tenderness at McBurney's point, negative Delgado's sign, non-distended, no rebound or guarding. : No suprapubic tenderness to palpation. MSK: No visible deformities, strength and tone without visually appreciable deficit. Skin: Normal color with no visible lesions. Neuro: alert and oriented 3, no facial asymmetry, vision and hearing WNL. Psych: Mood and affect appropriate. Labs / Imaging: CXR: thick linear density within the right lung base most likely representing prominent area of atelectasis. Nothing acute is otherwise seen on frontal chest x-ray. WBC 5.1, HB 11.9, sodium 145, potassium 4.5, creatinine 1.0. CTA Chest: pending. MDM Previous chart, nursing note, labs, imaging, and vitals reviewed. A: 59-year-old female presents for evaluation of cough, shortness breath, and progressive weakness of approximately one week. DDx: pneumonia, pneumonitis, PE, CHF. Evaluation: CBC, BMP, and chest x-ray without explaining etiology, patient developed oxygen requirement in the ED, CT angiography pending at time of patient care transfer to the overnight physician. ED Course: patient requiring 2-3 lpm via NC while in the ED. Impression: cough, hypoxemia. - Related Data Allergies Allergy/AdvReac Type Severity Reaction Status Date / Time No Known Allergies Allergy Verified 12/26/19 15:11 Home Meds: Home Meds Divalproex Sodium [Depakote] 250 mg PO TID 09/06/15 [History] Polyethylene Glycol 3350 [MiraLAX] 8.5 gm PO Q48H 09/06/15 [History] Polyvinyl Alcohol/Povidone [Refresh] 1 drop EYEBOTH ASDIRECTED PRN 09/06/15 [ History] fluvoxaMINE [Luvox] 100 mg PO BID 09/06/15 [History] Levothyroxine [Synthroid] 88 mcg PO DAILY 01/27/18 [History] Furosemide [Lasix] 20 mg PO DAILY 12/12/19 [History] fluvoxaMINE [Luvox] 50 mg PO BEDTIME 12/12/19 [History] risperiDONE [Risperdal] 1 mg PO TID 12/12/19 [History] Docusate Sodium 100 mg PO BID #60 capsule 12/14/19 [Rx] polyethylene glycoL 3350 [MiraLAX] 17 gm PO DAILY PRN #30 packet 12/14/19 [Rx] levoFLOXacin [Levaquin] 500 mg PO DAILY 7 Days #7 tab 12/26/19 [Rx] Past Medical History HEENT History: Reports: None Cardiovascular History: Reports: Hypertension Respiratory History: Reports: None Gastrointestinal History: Reports: Chronic Constipation Genitourinary History: Reports: None CHIEF PETROLEUM ENGINEER History: Reports: None Musculoskeletal History: Reports: None Neurological History: Reports: Other (See Below) Other Neuro History: scoliosis 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, Schizophrenia, Other (See Below) Other Psychiatric History: Disoragnized Type Moderate Endocrine/Metabolic History: Reports: Other (See Below) Other Endocrine/Metabolic History: melinda's hypothyroidism Hematologic History: Reports: None Immunologic History: Reports: None Oncologic (Cancer) History: Reports: None Dermatologic History: Reports: Other (See Below) Other Dermatologic History: hirsutism - Infectious Disease History Infectious Disease History: Reports: None - Past Surgical History Head Surgeries/Procedures: Reports: None HEENT Surgical History: Reports: None Cardiovascular Surgical History: Reports: None Respiratory Surgical History: Reports: None GI Surgical History: Reports: None Female Surgical History: Reports: Other (See Below) Other Female Surgeries/Procedures: Right Oophorectomy Neurological Surgical History: Reports: None Musculoskeletal Surgical History: Reports: None Social & Family History - Family History Family Medical History: Noncontributory - Tobacco Use Smoking Status *Q: Unknown Ever Smoked Second Hand Smoke Exposure: No - Caffeine Use Caffeine Use: Reports: None - Recreational Drug Use Recreational Drug Use: No ED ROS GENERAL - Review of Systems Review Of Systems: See Below ED EXAM, GENERAL - Physical Exam Exam: See Below Free Text/Narrative:: HPI 59-year-old female presents for evaluation of cough, shortness breath, and progressive weakness of approximately one week. No apparent fevers, chills, or further symptoms. Decreased PO intake. M/S/F/SocHx notable for: please see HPI; remainder reviewed with patient and in chart. ROS: Negative constitutional, eye, cardiovascular, pulmonary, GI, , MSK, skin , neurologic, psychiatric, endocrine unless noted in the HPI. Exam HR 92, RR 26, BP 131/88, T 36.0C, SaO2 91% on room air. Gen: Pleasant, non-toxic appearing, resting comfortably. HEENT: NC, AT, PEERL, EOMI. Resp: Clear to auscultation bilaterally, normal work of breathing, no accessory muscle usage. Card: Regular rate and rhythm with no murmurs, rubs, or gallops, extremities warm and well perfused. GI: Non-tender to palpation throughout all quadrants, no focal tenderness at McBurney's point, negative Delgado's sign, non-distended, no rebound or guarding. : No suprapubic tenderness to palpation. MSK: No visible deformities, strength and tone without visually appreciable deficit. Skin: Normal color with no visible lesions. Neuro: alert and oriented 3, no facial asymmetry, vision and hearing WNL. Psych: Mood and affect appropriate. Labs / Imaging: CXR: thick linear density within the right lung base most likely representing prominent area of atelectasis. Nothing acute is otherwise seen on frontal chest x-ray. WBC 5.1, HB 11.9, sodium 145, potassium 4.5, creatinine 1.0. CTA Chest: pending. MDM Previous chart, nursing note, labs, imaging, and vitals reviewed. A: 59-year-old female presents for evaluation of cough, shortness breath, and progressive weakness of approximately one week. DDx: pneumonia, pneumonitis, PE, CHF. Evaluation: CBC, BMP, and chest x-ray without explaining etiology, patient developed oxygen requirement in the ED, CT angiography pending at time of patient care transfer to the overnight physician. ED Course: patient requiring 2-3 lpm via NC while in the ED. Impression: cough, hypoxemia. Course - Vital Signs Text/Narrative:: Please see the original H&P as the patient's care has been handed off to me. Per the patient's caregiver, she has been coughing for 7 to 10 days and the symptoms sound like a viral syndrome at least initially. CT scan is concerning for lower lobe pneumonia but no other malignant pathology. A secondary, superimposed pneumonia is most likely. I reassessed the patient and she has been rehydrated and her color has improved per the caregiver, she is not tachypneic, her lungs are clear, is not wheezing, and I turned off the oxygen which was only on at 2 L per nasal cannula and the patient is oxygenating fine. Given the entire clinical scenario I feel that the patient is stable to be discharged back to her alf and I instructed her caregiver that 1 of the most important things they can do for her is to make her get up and not let her lay around in bed all day. They will also have to push the fluids on the patient. To be given a dose of Levaquin 750 mg orally in the ER and a prescription for Levaquin 500 mg once daily for the next 7 days. Stable for discharge and outpatient follow-up. Last Recorded V/S: Last Vital Signs Temp 36.0 C L 12/26/19 15:08 Pulse 81 12/26/19 18:30 Resp 18 12/26/19 18:30 BP 111/64 12/26/19 18:30 Pulse Ox 96 12/26/19 18:30 - Orders/Labs/Meds Labs: Laboratory Tests 12/26/19 12/26/19 Range/Units 16:44 16:44 WBC 5.81 (4.0-11.0) K/uL RBC 4.01 L (4.30-5.90) M/uL Hgb 11.9 L (12.0-16.0) g/dL Hct 37.4 (36.0-46.0) % MCV 93.3 (80.0-98.0) fL MCH 29.7 (27.0-32.0) pg MCHC 31.8 (31.0-37.0) g/dL RDW Std Deviation 59.2 (28.0-62.0) fl RDW Coeff of Jimy 18 H (11.0-15.0) % Plt Count 139 L (150-400) K/uL MPV 10.10 (7.40-12.00) fL Neut % (Auto) 71.2 (48.0-80.0) % Lymph % (Auto) 13.1 L (16.0-40.0) % [place] % (Auto) 14.6 (0.0-15.0) % Eos % (Auto) 0.9 (0.0-7.0) % Baso % (Auto) 0.2 (0.0-1.5) % Neut # (Auto) 4.1 (1.4-5.7) K/uL Lymph # (Auto) 0.8 (0.6-2.4) K/uL [place] # (Auto) 0.9 H (0.0-0.8) K/uL Eos # (Auto) 0.1 (0.0-0.7) K/uL Baso # (Auto) 0.0 (0.0-0.1) K/uL Nucleated RBC % 0.0 /100WBC Nucleated RBCs # 0 K/uL Sodium 145 (136-145) mmol/L Potassium 4.8 (3.5-5.1) mmol/L Chloride 103 (98-107) mmol/L Carbon Dioxide 36.9 H (21.0-32.0) mmol/L BUN 23 H (7.0-18.0) mg/dL Creatinine 1.0 (0.6-1.0) mg/dL Est Cr Clr Drug Dosing 49.49 mL/min Estimated GFR (MDRD) 56.6 ml/min Glucose 79 (74-106) mg/dL Calcium 10.1 (8.5-10.1) mg/dL Meds: Medications Discontinued Medications Generic Name Dose Route Start Last Admin Trade Name Freq PRN Reason Stop Dose Admin Sodium Chloride 1,000 mls @ 1,000 mls/hr 12/26/19 17:39 12/26/19 18:40 Normal Saline IV 12/26/19 18:38 1,000 mls/hr .Bolus ONE Administration Iopamidol 50 ml 12/26/19 19:00 12/26/19 19:00 Isovue Multipack-370 (76%) IVPUSH 12/26/19 19:01 50 ml ONETIME ONE Administration Levofloxacin 750 mg 12/26/19 19:40 Levaquin PO 12/26/19 19:41 ONETIME ONE Levofloxacin 750 mg 12/26/19 19:47 Levaquin PO 12/26/19 19:48 ONETIME ONE Departure - Departure Time of Disposition: 19:51 Disposition: DC/Tfer to [facility]04 Condition: Good Clinical Impression: Cough, Pneumonia - Discharge Information *PRESCRIPTION DRUG MONITORING PROGRAM REVIEWED*: Not Applicable *COPY OF PRESCRIPTION DRUG MONITORING REPORT IN PATIENT FABRICE: Not Applicable Instructions: Community-Acquired Pneumonia, Adult, [id number] Referrals: Tresa Barnes DO [Primary Care Provider] - Forms: ED Department Discharge Additional Instructions: You were in seen in the [facility] Emergency Department for evaluation of vaginal bleeding. Please read and follow all of the instructions below. Please follow up with your CHIEF PETROLEUM ENGINEER or family medicine physician within 36 to 48 hours for repeat evaluation. During your emergency department evaluation your beta hCG was 443. Please return immediately if you have any of the following: * Worsening bleeding. * Lightheadedness, shortness of breath, dizziness, chest pain. * Worsening pain. * If you are otherwise concerned about your health. When calling for follow-up care, please make the office aware that this follow- up is from your recent emergency room visit. If for any reason you are refused follow-up, please contact the [facility] Emergency Department at and asked to speak to the emergency department charge nurse. Your care today was limited to identifying and treating emergent medical problems only. Many people have subtle differences in their test results that require follow up with their outpatient physician(s) to correctly determine if this represents a normal variation or concerning abnormality with respect to your specific health. The care given to you today was limited to identifying and treating emergent medical problems - you need to request a copy of all of your medical records from today's visit and follow up with your outpatient physician(s) to review both today's visit and your overall health. If you have any new symptoms or if you are at all concerned about your health please return immediately to the emergency department. Prescriptions: If you are uninsured or have financial difficulties with filling your prescription(s), you may consider using a free pharmacy discount service such as [employer] ([employer]vigen) or [employer] ([place]). These services allow you to search for a medication on your phone (or computer) and obtain a coupon that usually has a significant discount from the list donald at a pharmacy. Your physician as well as [facility] does not have a financial relationship with either of these services. You may also wish to speak with your physician to determine if lower cost prescriptions are possible. Obtaining primary care: 1. [facility] provides pediatrics (children), family medicine (children, adults, and some obstetrical care), and internal medicine (adults). Further specialty care is also available. Same day appointments are available. They may be contacted at [phone] and are open Saturday through Saturday 8 AM to 5 PM. The [facility] are located at [facility], [address] [place] [address]. 2. [facility] offers family medicine, internal medicine, foundations behavioral health, and further specialty care. [facility] may be contacted at [phone]. [facility] is located at [address] [place] [address]. 3. If you have health insurance, please also contact your insurer for a list of accepting providers under your policy, you may contact these providers for further health care. Occupational health: Work related injuries may consider following up with [facility], . Occupational health services are located at [address] [place] [address] and are open Saturday through Saturday from 7: 30 am to 5:00 pm. Obstetrical and Gynecological Care: [facility], , Saturday through Saturday 8 AM to 5 PM. [address] [place] [address]. Eyecare: If you have an eye injury you should follow up with your program support clerk or with [facility], at [phone] or [phone] , they are located at [address] [place] [address]. [facility] Ar Angel DDS. [address] [facility].[place], [place]. Ph. [phone] Adelso Angel DDS MS. [address] [facility] [address], [place], [place]. Ph. Edin Thomas DDS. 10 10/[address] [place] [address]. Ph. [phone] Juan Crum DDS. [address] [facility] [address] [place], [place]. Ph. [phone] Mario Lindsey DDS PC. [address] [facility] [address] [place], [place]. Ph. [phone] Anshu Cruz DDS. [address] [facility]. Ph. [phone] [facility]. [address] [place], [place]. Ph. [phone] [facility]. [address] [place] [address], [place], [place]. Ph. [phone] [facility] [address] [place] [phone]. Ph. [facility]. [address] [place] [address] [address] [place], [place]. Ph. [phone] [facility]. [address] [place]. Ph. Sepsis Event Note - Evaluation Sepsis Screening Result: No Definite Risk - Focused Exam Vital Signs: Vital Signs Temp Pulse Resp BP Pulse Ox 12/26/19 18:30 81 18 111/64 96 12/26/19 17:30 82 22 H 144/70 H 95 12/26/19 16:30 87 20 138/49 L 95 12/26/19 15:30 86 24 H 120/62 94 L 12/26/19 15:08 36.0 C L 92 26 H 131/88 91 L Date Exam was Performed: 12/26/19 Time Exam was Performed: 19:49
[2019-12-26] MEDS ORDERED: Levofloxacin 500 MG Tab PO ONE (19:47)
[2019-12-26 20:40] VITALS: BP 126/58; PULSE 78
== END 2019-12-26 20:30 ==
LOC: MW.ED 14:51
DX: R09.02 Hypoxemia (principal); R05 Cough; I10 Essential (primary) hypertension; F20.9 Schizophrenia, unspecified; Z79.899 Other long term (current) drug therapy
CPT/HCPCS: 36415; 71045; 71275; 80048; 85025; 96360; 99285; A9270; J7030; Q9967

== ENCOUNTER 2021-07-05 06:55 | Day surgery (SDC) | payer MEDICARE, MEDICAID ==
--- NOTE | 2021-07-05 06:58 | PCM.PREANE ---
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,fmly hx unknown Transfusion History: No Prior Transfusion(s) - Review of Systems General: No Symptoms Pulmonary: No Symptoms Cardiovascular: No Symptoms Gastrointestinal: No Symptoms Neurological: No Symptoms, Other (Developmental delay) Other: Reports: Thyroid Problems (Hypothyroid) - Physical Assessment NPO Status Date: 07/03/21 NPO Status Time: 20:00 (Solids, >8hrs Liq) Height: 5 ft Weight: 54.5 kg ASA Class: 2 Mental Status: Alert & Oriented x3 Airway Class: Mallampati = 2 Dentition: Reports: Normal Dentition Thyro-Mental Finger Breadths: 3 ROM/Head Extension: Full Lungs: Clear to Auscultation, Normal Respiratory Effort Cardiovascular: Regular Rate, Regular Rhythm - Allergies Allergies/Adverse Reactions: Allergies Allergy/AdvReac Type Severity Reaction Status Date / Time No Known Allergies Allergy Verified 06/30/21 09:23 - Acknowledgements Anesthesia Type Planned: General Anesthesia Pt an Appropriate Candidate for the Planned Anesthesia: Yes Alternatives and Risks of Anesthesia Discussed w Pt/Guardian: Yes Pt/Guardian Understands and Agrees with Anesthesia Plan: Yes PreAnesthesia Questionnaire HEENT History: Reports: None Cardiovascular History: Reports: Hypertension Respiratory History: Reports: None Gastrointestinal History: Reports: None Genitourinary History: Reports: None DOCUMENT CLERK History: Reports: None Musculoskeletal History: Reports: None Neurological History: Reports: None Other Neuro History: scoliosis Psychiatric History: Reports: Developmental Delay Other Psychiatric History: Intellectual disability Endocrine/Metabolic History: Reports: Hypothyroidism Other Endocrine/Metabolic History: melinda's hypothyroidism Hematologic History: Reports: None Immunologic History: Reports: None Oncologic (Cancer) History: Reports: None Dermatologic History: Reports: None Other Dermatologic History: hirsutism - Infectious Disease History Infectious Disease History: Reports: None - Past Surgical History Head Surgeries/Procedures: Reports: None HEENT Surgical History: Reports: None Cardiovascular Surgical History: Reports: None Respiratory Surgical History: Reports: None GI Surgical History: Reports: None Female Surgical History: Reports: Oophorectomy Endocrine Surgical History: Reports: None Neurological Surgical History: Reports: None Musculoskeletal Surgical History: Reports: None Oncologic Surgical History: Reports: None - SUBSTANCE USE Tobacco Use Status *Q: Never Tobacco User Recreational Drug Use History: No - HOME MEDS Home Medications: Home Meds Polyethylene Glycol 3350 [MiraLAX] 8.5 gm PO ASDIRECTED 09/06/15 [History] Polyvinyl Alcohol/Povidone [Refresh] 1 drop EYEBOTH ASDIRECTED PRN 09/06/15 [History] fluvoxaMINE [Luvox] 100 mg PO QAM 09/06/15 [History] Levothyroxine [Synthroid] 88 mcg PO DAILY 01/27/18 [History] Furosemide [Lasix] 20 mg PO DAILY 12/12/19 [History] fluvoxaMINE [Luvox] 50 mg PO ASDIRECTED 12/12/19 [History] risperiDONE [Risperdal] 1 mg PO TID 12/12/19 [History] ClonazePAM [KlonoPIN] 0.5 mg PO BID PRN 06/30/21 [History] Divalproex Sodium [Depakote] 250 mg PO TID 06/30/21 [History] Docusate Sodium 100 mg PO BID PRN 06/30/21 [History] Simply Saline 1 spray NASBOTH ASDIRECTED PRN 06/30/21 [History] Spironolactone 50 mg PO BID 06/30/21 [History] hydroCHLOROthiazide [Hydrochlorothiazide] 25 mg PO DAILY 06/30/21 [History] - CURRENT (IN HOUSE) MEDS Current Meds: Current Medications Lactated Ringer's (Ringers, Lactated) 1,000 mls @ 125 mls/hr IV ASDIRECTED [facility]
[2021-07-05] MEDS ORDERED: Propofol 200 MG/20 ML SDV ONE (07:05)
[2021-07-05] MEDS ORDERED: fentaNYL 100 MCG/2 ML SDV ONE (07:06)
[2021-07-05] MEDS ORDERED: Midazolam 1 MG/ML 2 ML SDV ONE (08:31)
[2021-07-05] MEDS ORDERED: Lactated Ringers 1,000 ML IV SCH (09:30)
[2021-07-05] MEDS ORDERED: ePHEDrine 50 MG/ML SDV ONE (10:29)
[2021-07-05] MEDS ORDERED: Glycopyrrolate 0.2 MG/ML SDV ONE (10:29)
--- NOTE | 2021-07-05 10:47 | PCM.OPNOTE ---
- General Post-Op/Procedure Note Date of Surgery/Procedure: 07/05/21 Operative Procedure(s): Colonoscopy Findings: Diverticulosis dictation number [id number] Pre Op Diagnosis: positive cologuard Post-Op Diagnosis: Diverticulosis Anesthesia Technique: MAC Primary Surgeon: Ryan Michelle Pathology: none Complications: None Condition: Good
--- NOTE | 2021-07-05 11:03 | PCM.POSTAN ---
POST ANESTHESIA ASSESSMENT - MENTAL STATUS Mental Status: Alert, Oriented - VITAL SIGNS Vital Signs: Last Vital Signs Temp 96.4 F L 07/05/21 07:08 Pulse 100 07/05/21 07:08 Resp 16 07/05/21 07:08 BP 136/83 07/05/21 07:08 Pulse Ox 96 07/05/21 07:08 - RESPIRATORY Respiratory Status: Respiratory Rate WNL, Airway Patent, O2 Saturation Stable - CARDIOVASCULAR CV Status: Pulse Rate WNL, Blood Pressure Stable - GASTROINTESTINAL GI Status: No Symptoms - POST OP HYDRATION Hydration Status: Adequate & Stable
--- NOTE | 2021-07-05 11:07 | PCM48HPAN ---
Post Anesthesia Note - EVALUATION WITHIN 48HRS OF ANESTHETIC Vital Signs in Normal Range: Yes Patient Participated in Evaluation: Yes Respiratory Function Stable: Yes Airway Patent: Yes Cardiovascular Function Stable: Yes Hydration Status Stable: Yes Pain Control Satisfactory: Yes Nausea and Vomiting Control Satisfactory: Yes Mental Status Recovered: Yes Vital Signs: Last Vital Signs Temp 96.4 F L 07/05/21 07:08 Pulse 100 07/05/21 07:08 Resp 16 07/05/21 07:08 BP 136/83 07/05/21 07:08 Pulse Ox 96 07/05/21 07:08 - COMMENTS/OBSERVATIONS Free Text/Narrative:: Pt doing well post-op. VSS. No apparent anesthetic complications. Dr. Chevy Francois
[2021-07-05 11:32] VITALS: BP 124/70; PULSE 92
--- NOTE | 2021-07-05 17:41 | OR ---
SURGEON: JAIME WAGNER MD DATE OF PROCEDURE: 07/05/2021 PREOPERATIVE DIAGNOSIS: Positive Cologuard. POSTOPERATIVE DIAGNOSIS: Diverticulosis. PROCEDURE PERFORMED: Colonoscopy. PRIMARY SURGEON: Jaime Wagner MD ANESTHESIA: With anesthesiologist. EXTENT OF COLONOSCOPY: To the cecum. BOWEL PREP: Okay. LIMITATIONS: None. SPECIMENS: None. REASON FOR PROCEDURE: The patient is a pleasant 60-year-old female. Per her report, the patient had a normal colonoscopy in 2014. It looks like she sometimes has issues with some fecal impaction, but she has had the bowel prep, and her caregiver says bowel prep went well. They deny any blood in her stool. The patient did have a Cologuard that was positive. The patient is here with her caregiver. PROCEDURE IN DETAIL: Physical examination was performed. The major risks and benefits again had been discussed with the caregiver and the patient. IV was started. EKG, pulse, pulse oximetry, blood pressure, and capnography were monitored throughout the procedure. Continuous oxygen and sedation were provided by the anesthesiologist. Sedation was began. After sedation was adequate, the patient was placed in left lateral decubitus position. A digital rectal exam was performed. No rectal masses or polyps were felt. Now, a well-lubricated Olympus colonoscope was inserted into the rectum, advanced under direct visualization to the level of the cecum. The cecum was identified by both visual and anatomic landmarks. Photographs were taken of the cecal cap. The patient did have some retained liquid stool and just organic matter. This was suctioned and irrigated for a fairly good look at the mucosa and the cecum. Ileocecal valve was also seen. The scope was then slowly withdrawn in circular fashion looking at the color, texture, anatomy, and integrity of the mucosa from the cecum to the anal canal. The patient had a little bit of liquid stool and prep still retained. This was suctioned and irrigated out for a very good look at the mucosa. She did have a couple of kernels of corn. Again, these were all mobile. The patient did have diverticulosis throughout the sigmoid colon. The scope was retroflexed in the rectum. Scope was completely removed and the procedure was terminated. ENDOSCOPIC DIAGNOSIS: Normal colonoscopy. RECOMMENDATIONS: Followup colonoscopy should be in 10 years, sooner if she develops signs or symptoms such as change in bowel habits or blood in her stool. ALIZA / EVAN /[id number]
== END 2021-07-05 11:48 | disposition home or self-care (01) ==
LOC: MW.SDS 06:55
PROVIDERS: ATTEND Surgery
DX: K57.30 Diverticulosis of large intestine without perforation or abscess without bleeding (principal); I10 Essential (primary) hypertension; N17.9 Acute kidney failure, unspecified; E03.9 Hypothyroidism, unspecified; Z79.890 Hormone replacement therapy; Z79.899 Other long term (current) drug therapy; Z98.890 Other specified postprocedural states
CPT/HCPCS: 45378; J2250; J2704; J3490; 00812; J3010

== ENCOUNTER 2022-06-13 09:44 | Emergency (ER) | payer MEDICARE, MEDICAID ==
[2022-06-13 10:21] VITALS: BP 100/61; PULSE 68
== END 2022-06-13 12:58 | disposition home or self-care (01) ==
LOC: MW.ED 09:44
DX: R30.0 Dysuria (principal); I10 Essential (primary) hypertension; Z79.899 Other long term (current) drug therapy
CPT/HCPCS: 81003; 99283

== ENCOUNTER 2023-02-13 09:34 | Emergency (ER) | payer MEDICARE, MEDICAID ==
[2023-02-13] MEDS ORDERED: Albuterol/Ipratropium 3.0-0.5 MG/3 ML Neb Soln NEB ONE (09:43)
[2023-02-13] MEDS ORDERED: methylPREDNISolone Sodium Succinate 125 MG/2 ML SDV IVPUSH ONE (09:43)
[2023-02-13] MEDS ORDERED: Sodium Chloride 0.9% 1,000 ML IV ONE ×4 (09:43→12:46)
[2023-02-13] MEDS ORDERED: Piperacillin/Tazobactam 4.5 GM in Sodium Chloride 0.9% 100 ML IV ONE (09:49)
[2023-02-13 10:40] LABS: CARBON DIOXIDE,CO2 37.8 mmol/L (21.0-32.0); POTASSIUM,K 3.9 mmol/L (3.5-5.1)
[2023-02-13 11:15] LABS: CORONAVIRUS COVID-19 NAA NEGATIVE (NEGATIVE); INFLUENZA A NAA NEGATIVE (NEGATIVE); INFLUENZA B NAA NEGATIVE (NEGATIVE)
[2023-02-13] MEDS ORDERED: Succinylcholine 200 MG/10 ML MDV IV STA (11:31)
[2023-02-13] MEDS ORDERED: Etomidate 2 MG/ML 20 ML SDV IVPUSH ONE (11:31)
[2023-02-13] MEDS ORDERED: fentaNYL/Normal Saline 2,500 MCG in Premix Bag 1 BAG IV PRN (11:32)
[2023-02-13] MEDS ORDERED: Midazolam HCl In 0.9 % NaCl/Pf 100 ML IV SCH (11:45)
[2023-02-13] MEDS ORDERED: Rocuronium 50 MG/5 ML Vial IV ONE (12:14)
[2023-02-13] MEDS ORDERED: Ketorolac 30 MG/ML SDV IVPUSH ONE (14:08)
[2023-02-13 15:44] VITALS: BP 127/66; PULSE 68
== END 2023-02-13 14:20 ==
LOC: MW.ED 09:34
DX: J69.0 Pneumonitis due to inhalation of food and vomit (principal); I10 Essential (primary) hypertension; E03.9 Hypothyroidism, unspecified; Z79.899 Other long term (current) drug therapy; Z20.822 Contact with and (suspected) exposure to COVID-19
CPT/HCPCS: 0240U; 31500; 36415; 36600; 43752; 71045; 71275; 80053; 81001; 82803; 83605; 83690; 83735; 83880; 84484; 85025; 87040; 93005; 94640; 96361; 96365; 96375; 99285; J0330; J2251; J2543; J2930; J3490; J7030; 93010; 99291; J7620-GY